=== PATIENT | female | born 1945 | race African-American/Black ===

== ENCOUNTER 2016-11-23 03:22 | Emergency (ER) | payer MEDICARE ==
--- NOTE | 2016-11-23 05:18 | RADIOLOGY REPORT (SQ) ---
EXAM DESCRIPTION: CHEST SINGLE VIEW COMPLETED DATE/TIME: 11/23/2016 5:06 am REASON FOR STUDY: weakness COMPARISON: 01/19/2015. 06/23/2014. EXAM PARAMETERS: NUMBER OF VIEWS: One view. TECHNIQUE: Single frontal radiographic view of the chest acquired. RADIATION DOSE: NA LIMITATIONS: None. FINDINGS: LUNGS AND PLEURA: No opacities, masses or pneumothorax. No pleural effusion. MEDIASTINUM AND HILAR STRUCTURES: No masses. Contour normal. HEART AND VASCULAR STRUCTURES: Heart normal in size. Normal vasculature. BONES: No acute findings. HARDWARE: None in the chest. OTHER: No other significant finding. IMPRESSION: NO ACUTE RADIOGRAPHIC FINDING IN THE CHEST. TECHNICAL DOCUMENTATION: JOB ID: [id number]
[2016-11-23 05:19] LABS: ABSOLUTE LYMPHOCYTES (AUTO) 1.2 10^3/uL (0.5-4.7); ABSOLUTE MONOCYTES (AUTO) 0.3 10^3/uL (0.1-1.4); ABSOLUTE NEUT (AUTO) 1.9 10^3/uL (1.7-8.2); BASOPHILS % (AUTO) 0.4 % (0-2); EOSINOPHILS % (AUTO) 0.2 % (0-6); HEMATOCRIT 42.5 % (36.0-47.0); HEMOGLOBIN 13.9 g/dL (12.0-15.5); HGB HCT DIFFERENCE -0.8; LYMPHOCYTES % (AUTO) 35.6 % (13-45); MEAN CORPUSCULAR HEMOGLOBIN 27.8 pg (27.0-33.4); MEAN CORPUSCULAR HGB CONC 32.8 g/dL (32.0-36.0); MEAN CORPUSCULAR VOLUME 85 fl (80-97); MONOCYTES % (AUTO) 7.7 % (3-13); RED BLOOD COUNT 5.01 10^6/uL (3.72-5.28); RED CELL DISTRIBUTION WIDTH 14.7 % (11.5-14.0); SEGMENTED NEUTROPHILS % (AUTO) 56.1 % (42-78); WHITE BLOOD COUNT 3.3 10^3/uL (4.0-10.5)
[2016-11-23 05:39] LABS: ALANINE AMINOTRANSFERASE 23 U/L (9-52); ALBUMIN 4.1 g/dL (3.5-5.0); ALKALINE PHOSPHATASE 66 U/L (38-126); ANION GAP 10 (5-19); ASPARTATE AMINO TRANSFERASE 24 U/L (14-36); BILIRUBIN,DIRECT 0.3 mg/dL (0.0-0.4); BILIRUBIN,TOTAL 0.9 mg/dL (0.2-1.3); BLOOD UREA NITROGEN 13 mg/dL (7-20); CALCIUM 10.3 mg/dL (8.4-10.2); CARBON DIOXIDE 26 mmol/L (22-30); CHLORIDE 106 mmol/L (98-107); CREATINE KINASE 42 U/L (30-135); CREATININE RESULT 0.76 mg/dL (0.52-1.25); GLUCOSE 118 mg/dL (75-110); POTASSIUM 3.9 mmol/L (3.6-5.0); SODIUM 142.2 mmol/L (137-145); TOTAL PROTEIN 7.3 g/dL (6.3-8.2)
[2016-11-23 05:50] LABS: CREATINE KINASE MB 0.38 ng/mL (<4.55)
[2016-11-23 05:55] LABS: TROPONIN I 0.048 ng/mL
--- NOTE | 2016-11-23 06:41 | ER Document Report ---
ED General <LIBERTY CONLEY - Last Filed: 11/23/16 06:49> - General Mode of Arrival: Ambulatory Information source: Patient TRAVEL OUTSIDE OF THE [place] IN LAST 30 DAYS: No - HPI Onset: Other - Refer to HPI notes Onset/Duration: Gradual Similar symptoms previously: Yes Recently seen / treated by doctor: No <JACKY BLISS - Last Filed: 11/23/16 07:20> - General Chief Complaint: General Weakness Stated Complaint: GENERAL WEAKNESS Time Seen by Provider: 11/23/16 06:27 Notes: Patient is a 71 year old female presenting to the emergency department for not feeling well. Patient has been "feeling like nothing" and "feeling like giving up on life" for the past several months. Patient's states that she has felt like this for some time and has not seen a physician about it yet. Patient does have an appointment with Dr. Zavala tomorrow. Patient also complains of some burning to the left side of her body which she describes a fire. Patient states she woke up with this pain. Patient's spouse states the patient has had several close loved ones pass away over the last 2-3 years. Patient has not had any changes to her medications. Patient has a history of diabetes mellitus and hypertension. Patient is not currently taking any medicine for her hypertension but was previously taking lisinopril until she had an allergic reaction to lisinopril. (JACKY BLISS) - Related Data Allergies/Adverse Reactions: lisinopril Allergy (Verified 04/20/16 15:59) angioedema, tongue swollen Past Medical History - General Information source: Patient, Relative - spouse - Social History Smoking Status: Never Smoker Cigarette use (# per day): No Chew tobacco use (# tins/day): No Frequency of alcohol use: None Drug Abuse: None Family History: None Patient has suicidal ideation: No Patient has homicidal ideation: No - Past Medical History Cardiac Medical History: Reports: Hx Hypertension Endocrine Medical History: Reports: Hx Diabetes Mellitus Type 2 Past Surgical History: Reports: Hx Appendectomy, Hx Hysterectomy, Hx Neurologic Surgery - 2000 coiling, Hx Tubal Ligation - Immunizations Hx Diphtheria, Pertussis, Tetanus Vaccination: Yes <JACKY BLISS - Last Filed: 11/23/16 07:20> Review of Systems - Review of Systems Constitutional: See HPI, Malaise EENT: No symptoms reported Cardiovascular: See HPI Respiratory: No symptoms reported Gastrointestinal: No symptoms reported Genitourinary: No symptoms reported Female Genitourinary: No symptoms reported Musculoskeletal: No symptoms reported Skin: No symptoms reported Hematologic/Lymphatic: No symptoms reported Neurological/Psychological: See HPI, Depression -: Yes All other systems reviewed and negative <RITCHIEFLORENTIN GRANTINE - Last Filed: 11/23/16 07:20> Physical Exam - Vital signs Interpretation: Hypertensive - General General appearance: Appears well, Alert In distress: Mild - HEENT Head: Normocephalic, Atraumatic Eyes: Normal Pupils: PERRL Mucous membranes: Moist - Respiratory Respiratory status: No respiratory distress Chest status: Nontender Breath sounds: Normal Chest palpation: Normal - Cardiovascular Rhythm: Regular Heart sounds: Normal auscultation Murmur: No - Abdominal Inspection: Obese Distension: No distension Bowel sounds: Normal Tenderness: Nontender Organomegaly: No organomegaly - Back Back: Normal, Nontender - Extremities General upper extremity: Normal inspection, Normal ROM, Normal strength General lower extremity: Normal inspection, Normal ROM, Normal strength. No: Edema - Neurological Neuro grossly intact: Yes Cognition: Normal Orientation: AAOx4 [place] Coma Scale Eye Opening: Spontaneous [place] Coma Scale Verbal: Oriented [place] Coma Scale Motor: Obeys Commands [place] Coma Scale Total: 15 Speech: Normal - Psychological Associated symptoms: Flat affect, Other - no suicidal ideation - Skin Skin Temperature: Warm Skin Moisture: Dry <FLORENTIN BLISSINE - Last Filed: 11/23/16 07:20> - Vital signs Vitals: Pulse Ox 98 11/23/16 03:39 Course - Laboratory Result Diagrams: 11/23/16 04:58 11/23/16 04:58 - Diagnostic Test Radiology reviewed: Image reviewed, Reports reviewed - Chest x-ray shows no acute process - EKG Interpretation by Ut EKG shows normal: Sinus rhythm, [place], Intervals, ST-T Waves. abnormal: QRS Complexes - Borderline R-wave progression in the anterior leads Rate: Normal - 51 Rhythm: NSR <LIBERTY CONLEY - Last Filed: 11/23/16 06:49> - Laboratory Result Diagrams: 11/23/16 04:58 11/23/16 04:58 <JACKY BLISS - Last Filed: 11/23/16 07:20> - Re-evaluation Re-evalutation: 11/23/16 06:50 Patient's initial troponin is in the indeterminate range. Review of records shows she had several troponins in the same range on an admission in 2011. ( LIBERTY CONLEY) - Vital Signs Vital signs: Temp Pulse Resp BP Pulse Ox 98.3 F 49 L 17 175/76 H 98 11/23/16 06:31 11/23/16 04:26 11/23/16 06:31 11/23/16 06:31 11/23/16 06:31 - Laboratory Laboratory results interpreted by me: 11/23/16 11/23/16 04:58 04:58 WBC 3.3 L RDW 14.7 H Plt Count 148 L Glucose 118 H Calcium 10.3 H Discharge <LIBERTY CONLEY - Last Filed: 11/23/16 06:49> <JACKY BLISS - Last Filed: 11/23/16 07:20> - Discharge Clinical Impression: Depression Qualifiers: Depression Type: unspecified Qualified Code(s): F32.9 - Major depressive disorder, single episode, unspecified High blood pressure Qualifiers: Hypertension type: essential hypertension Qualified Code(s): I10 - Essential ( primary) hypertension Disposition: HOME, SELF-CARE Additional Instructions: Depression: Your evaluation reveals that you have depression. While symptoms may be vague, they often include disturbance of sleep, fatigue, loss of appetite, and general loss of interest in life. While depression may be a side effect of drugs, or a reaction to a major change in your life, many cases have no known cause. If depression is acute, and related to a major loss in your life, you can expect it to clear completely with time. If you have been depressed a long time , are prone to repeated bouts of depression or low mood, or have been thinking of suicide, get help. Depression can be treated with anti-depressant medication and counselling. Long-term depression will often take a few weeks to clear, even with appropriate medication. Follow-up care is important. Contact your physician, the hospital emergency center, crisis line, or your counsellor if you are losing control or having self-destructive thoughts. Your blood pressure has been running on the high side on your previous visits including today. Be sure to tell Dr. Zavala about your blood pressure being too high when you see him tomorrow to discuss your depression symptoms. RETURN TO THE EMERGENCY ROOM IF ANY NEW OR WORSENING SYMPTOMS. Referrals: PRERNA ZAVALA MD [Primary Care Provider] - Follow up tomorrow [place] Attestation: 11/23/16 06:49 I personally performed the services described in the documentation, reviewed and edited the documentation which was dictated to the scribe in my presence, and it accurately records my words and actions. (LIBERTY CONLEY) Scribe Documentation - Scribe Written by Sunni:: Sunni Chapman 11/23/16 7:15 acting as scribe for :: Giovany <JACKY BLISS - Last Filed: 11/23/16 07:20>
[2016-11-23 06:56] VITALS: BP 175/76
[2016-11-23 08:26] LABS: APPEARANCE,URINE CLEAR; BILIRUBIN,URINE NEGATIVE (NEGATIVE); GLUCOSE, URINE NEGATIVE (NEGATIVE); KETONES,URINE NEGATIVE (NEGATIVE); LEUKOCYTE ESTERASE,URINE NEGATIVE (NEGATIVE); NITRITE,URINE NEGATIVE (NEGATIVE); PROTEIN,URINE NEGATIVE (NEGATIVE); URINE SPECIFIC GRAVITY 1.005; UROBILINOGEN,URINE NEGATIVE mg/dL (<2.0)
--- NOTE | 2016-11-23 10:38 | EKG REPORT ---
SEVERITY:- BORDERLINE ECG - SINUS RHYTHM BORDERLINE R WAVE PROGRESSION, ANTERIOR LEADS : Confirmed by: Sarah Heart 23-Nov-2016 10:37:27
== END 2016-11-23 06:55 | disposition home or self-care (01) ==
LOC: ER 03:22
DX: F32.9 Major depressive disorder, single episode, unspecified (principal); R20.8 Other disturbances of skin sensation; I10 Essential (primary) hypertension; E11.9 Type 2 diabetes mellitus without complications; Z88.8 Allergy status to other drugs, medicaments and biological substances
CPT/HCPCS: 36415; 71010; 80053; 81001; 82550; 82553; 84484; 85025; 93005; 93010; 99284

== ENCOUNTER 2016-12-07 11:37 | Inpatient (IN) | payer MEDICARE ==
[2016-12-07] MEDS ORDERED: ETOMIDATE INJ/PF 20 MG/10 ML SDV IV ONE (11:57)
[2016-12-07] MEDS ORDERED: LABETALOL HCL INJ 20 MG/4 ML DISP.SYRIN IV ONE ×2 (12:03→12:04)
--- NOTE | 2016-12-07 12:16 | ER Document Report ---
ED Allergic Reaction - General Mode of Arrival: Ambulatory Information source: Patient, Relative - , [facility], LAT[facility] Records TRAVEL OUTSIDE OF THE [place] IN LAST 30 DAYS: No - HPI Onset: Just prior to arrival Onset/Duration: Sudden, Worse Medication Exposure: Other - Amlodipine Swelling: Lip(s), Tongue, Throat Trouble swallowing / speaking: Moderate <HASEEB CHAPMAN - Last Filed: 12/07/16 12:18> <LIBERTY CONLEY - Last Filed: 12/07/16 12:46> - General Chief Complaint: Swelling of Tongue Stated Complaint: POSSIBLE ALLERGIC REACTION/DIFFICULTY BREATHING Time Seen by Provider: 12/07/16 11:47 Notes: Patient is a 71-year-old female presenting to the emergency department accompanied by her concerned of tongue and mouth swelling onset approximately 30 minutes prior to arrival. Patient's states that it took him approximately [address] here to the emergency department. Patient cannot speak, but has been spitting her secretions. Patient's states that the patient has experienced tongue swelling before secondary to an allergic reaction to lisinopril. Patient took amlodipine this morning for her blood pressure. (HASEEB CHAPMAN) - Related Data Allergies/Adverse Reactions: lisinopril Allergy (Verified 12/07/16 12:16) angioedema, tongue swollen Past Medical History - General Information source: Patient, [facility], LAT[facility] Records - Social History Smoking Status: Never Smoker Family History: Reviewed & Not Pertinent - Past Medical History Cardiac Medical History: Reports: Hx Hypertension Endocrine Medical History: Reports: Hx Diabetes Mellitus Type 2 Past Surgical History: Reports: Hx Appendectomy, Hx Hysterectomy, Hx Neurologic Surgery - 2000 coiling, Hx Tubal Ligation - Immunizations Hx Diphtheria, Pertussis, Tetanus Vaccination: Yes <HASEEB CHAPMAN - Last Filed: 12/07/16 12:18> Review of Systems - Review of Systems Constitutional: No symptoms reported EENT: See HPI, Difficulty swallowing, Throat swelling, Mouth swelling Cardiovascular: No symptoms reported Respiratory: No symptoms reported Gastrointestinal: No symptoms reported Genitourinary: No symptoms reported Female Genitourinary: No symptoms reported Musculoskeletal: No symptoms reported Skin: No symptoms reported Hematologic/Lymphatic: No symptoms reported Neurological/Psychological: No symptoms reported -: Yes All other systems reviewed and negative <HASEEB CHAPMAN - Last Filed: 12/07/16 12:18> Physical Exam - General General appearance: Alert - Unable to speak - HEENT Head: Normocephalic, Atraumatic Eyes: Normal Pupils: PERRL Mouth/Lips: Angioedema - Lower lip grossly edematous. Tongue edematous and glistening., Other - Difficulty controlling secretions, spitting Pharynx: Uvular edema, Other - Unable to visualize posterior pharynx - Respiratory Respiratory status: No respiratory distress Chest status: Nontender Breath sounds: Normal Chest palpation: Normal - Cardiovascular Rhythm: Regular Heart sounds: Normal auscultation Murmur: No - Abdominal Inspection: Obese - Soft Tenderness: Nontender - Back Back: Normal, Nontender - Extremities General upper extremity: Normal inspection, Nontender General lower extremity: Normal inspection, Nontender - Neurological Neuro grossly intact: Yes Cognition: Normal Orientation: AAOx4 [place] Coma Scale Eye Opening: Spontaneous [place] Coma Scale Verbal: Oriented [place] Coma Scale Motor: Obeys Commands [place] Coma Scale Total: 15 Speech: Other - Unable to speak due to swelling - Psychological Associated symptoms: Normal affect, Normal mood - Skin Skin Temperature: Warm Skin Moisture: Dry Skin Color: Normal <HASEEB CHAPMAN - Last Filed: 12/07/16 12:18> Course - Consults Dr. Kearns Time consulted: 12:00 Consulted provider: will come to ER Nurse leonardthecist \ Time consulted: 12:00 Consulted provider: other - Coordinating to go to OR to preserve airway <HASEEB CHAPMAN - Last Filed: 12/07/16 12:18> - Consults Dr. Zavala Time consulted: 12:25 Consulted provider: will see as inpatient <LIBERTY CONLEY - Last Filed: 12/07/16 12:46> - Vital Signs Vital signs: Temp Pulse Resp BP Pulse Ox 75 18 190/86 H 100 12/07/16 12:05 12/07/16 12:31 12/07/16 12:31 12/07/16 12:31 Critical Care Note - Critical Care Note Total time excluding time spent on procedures (mins): 35 <LIBERTY CONLEY - Last Filed: 12/07/16 12:46> Discharge <HASEEB CHAPMAN - Last Filed: 12/07/16 12:18> - Discharge Unit Admitted: OR <LIBERTY CONLEY - Last Filed: 12/07/16 12:46> - Discharge Clinical Impression: Airway compromise, Poorly-controlled hypertension Angioedema Qualifiers: Encounter type: initial encounter Qualified Code(s): T78.3XXA - Angioneurotic edema, initial encounter Condition: Good Disposition: ADMITTED INPATIENT Scribe Attestation: 12/07/16 12:46 I personally performed the services described in the documentation, reviewed and edited the documentation which was dictated to the scribe in my presence, and it accurately records my words and actions. (LIBERTY CONLEY) Scribe Documentation - Scribe Written by Sunni:: Sunni Contreras, 12/07/2016 1211 acting as scribe for :: Giovany <HASEEB CHAPMAN - Last Filed: 12/07/16 12:18>
[2016-12-07] MEDS ORDERED: LIDOCAINE 1%/EPINEPHRINE INJ 20 ML VIAL ONE (12:26)
[2016-12-07] MEDS ORDERED: LIDOCAINE 4% INJ/PF (40 MG/ML) 5 ML AMPUL ONE (12:51)
[2016-12-07 12:59] LABS: ABSOLUTE LYMPHOCYTES (AUTO) 1.8 10^3/uL (0.5-4.7); ABSOLUTE MONOCYTES (AUTO) 0.4 10^3/uL (0.1-1.4); ABSOLUTE NEUT (AUTO) 3.3 10^3/uL (1.7-8.2); BASOPHILS % (AUTO) 0.4 % (0-2); EOSINOPHILS % (AUTO) 0.1 % (0-6); HEMATOCRIT 47.4 % (36.0-47.0); HEMOGLOBIN 15.1 g/dL (12.0-15.5); HGB HCT DIFFERENCE -2.1; LYMPHOCYTES % (AUTO) 32.6 % (13-45); MEAN CORPUSCULAR HEMOGLOBIN 27.5 pg (27.0-33.4); MEAN CORPUSCULAR HGB CONC 31.8 g/dL (32.0-36.0); MEAN CORPUSCULAR VOLUME 87 fl (80-97); MONOCYTES % (AUTO) 7.7 % (3-13); RED BLOOD COUNT 5.47 10^6/uL (3.72-5.28); RED CELL DISTRIBUTION WIDTH 15.1 % (11.5-14.0); SEGMENTED NEUTROPHILS % (AUTO) 59.2 % (42-78); WHITE BLOOD COUNT 5.6 10^3/uL (4.0-10.5)
[2016-12-07 13:06] LABS: ALANINE AMINOTRANSFERASE 20 U/L (9-52); ALBUMIN 4.4 g/dL (3.5-5.0); ALKALINE PHOSPHATASE 76 U/L (38-126); ANION GAP 16 (5-19); ASPARTATE AMINO TRANSFERASE 47 U/L (14-36); BILIRUBIN,DIRECT 0.4 mg/dL (0.0-0.4); BILIRUBIN,TOTAL 0.9 mg/dL (0.2-1.3); BLOOD UREA NITROGEN 18 mg/dL (7-20); CALCIUM 10.6 mg/dL (8.4-10.2); CARBON DIOXIDE 27 mmol/L (22-30); CHLORIDE 104 mmol/L (98-107); CREATINE KINASE 43 U/L (30-135); CREATININE RESULT 0.91 mg/dL (0.52-1.25); GLUCOSE 194 mg/dL (75-110); POTASSIUM 4.2 mmol/L (3.6-5.0); SODIUM 146.6 mmol/L (137-145); TOTAL PROTEIN 8.4 g/dL (6.3-8.2)
[2016-12-07 13:18] LABS: CREATINE KINASE MB 0.38 ng/mL (<4.55)
[2016-12-07 13:22] LABS: TROPONIN I 0.051 ng/mL
[2016-12-07] MEDS ORDERED: PROPOFOL 100 ML IV ONE ×2 (13:44→16:24)
[2016-12-07] MEDS ORDERED: PROPOFOL INJ 200 MG/20 ML VIAL IV ONE (13:59)
--- NOTE | 2016-12-07 13:59 | OPERATIVE REPORT E ---
Operative Report NAME: YEMI CARLSON : 1945 AGE: 71Y DATE OF SURGERY: 12/07/2016 ROOM: ICU 603 PREOPERATIVE DIAGNOSIS: Angioedema. POSTOPERATIVE DIAGNOSIS: Angioedema. OPERATION: 1. Intubation. 2. Standby for a possible tracheostomy. SURGEON: FAUSTINA LEE M.D. ENGINEER INTERNSHIP: None. ANESTHESIA: General, Dr. Corinne MD, and Mignon Cardenas CRNA. PREOPERATIVE NOTE: This is a 71-year-old lady who started to develop swelling of the lip around 1100 hours this morning. She has had episodes of angioedema before, which was thought to be associated with lisinopril, which has therefore been discontinued. The swelling appeared to advance very rapidly, and she was brought by private car to the emergency department by her . Transport took approximately 30 minutes. On arrival in the emergency department, she was assessed by Dr. Ranjan Zheng. Anesthesia and Otolaryngology were called because of the potential need for a tracheostomy, as the edema appeared to be worsening with every passing minute. When seen and assessed in the emergency department, (~1215hr), it was evident that there was massive edema of the lower lip (rather more than the upper one), but there was involvement of the palate, floor of mouth, and also the uvula, and the patient was having to spit up her secretions. Emergent preparations were therefore made to clear an operating room in order to intubate the patient. A tracheostomy set was brought into the room and this was opened, and ascalpel handle were loaded with a #10 blade. The patient was briefly examined, and that examination is available in hand-written form. DESCRIPTION OF PROCEDURE: On arrival in the operating room, she was transferred onto the operating room table and placed supine. The pharynx was sprayed multiple times with 10% benzocaine. An airway was then placed, and she was sprayed through that as well. After a certain time interval, 4% topical lidocaine solution was introduced, using a syringe and an Angiocath, down the pharyngeal gutters. At this point, the patient regurgitated gastric fluid, necessitating urgent and aggressive suctioning. The Glidescope was then utilized, and the larynx was visualized. The epiglottis was noted to be omega-shaped and at least twice normal size. There was intense edema over the arytenoids, such that the true vocal cords could not be visualized. There was edema throughout the posterior pharyngeal wall. There were much secretions, which were difficult to remove because the patient was swallowing. A #7 endotracheal tube was chosen, and a stylet was inserted. This was then passed over the Glidescope, and fortunately it was possible to enter the airway with this. An end-tidal CO2 was noted. Suctioning was done. This endotracheal tube was then secured using tincture of benzoin and tape. Arrangements were then made to transport the patient to the intensive care unit. This was then subsequently done, and a chest x-ray is ordered there. This was reviewed. There was gastric distension shown, but no evidence for aspiration, which had been a concern. The operating surgeon was then able to talk with the patient's and family to assure them that the patient was now out of danger. There were no complications and no untoward events. Estimated blood loss is 0. DICTATING PHYSICIAN: FAUSTINA LEE M.D. [id number] PHY#: [id number] ID: [id number] JOB#: [id number] ACCT: [id number] cc:Liam IBARRA M.D. > MTDD
--- NOTE | 2016-12-07 14:09 | RADIOLOGY REPORT (SQ) ---
EXAM DESCRIPTION: CHEST SINGLE VIEW COMPLETED DATE/TIME: 12/07/2016 1:56 pm REASON FOR STUDY: ETT placement COMPARISON: 11/23/2016 EXAM PARAMETERS: NUMBER OF VIEWS: One view. TECHNIQUE: Single frontal radiographic view of the chest acquired. RADIATION DOSE: NA LIMITATIONS: None. FINDINGS: LUNGS AND PLEURA: No opacities, masses or pneumothorax. No pleural effusion. MEDIASTINUM AND HILAR STRUCTURES: No masses. Contour normal. HEART AND VASCULAR STRUCTURES: Heart normal in size. Normal vasculature. BONES: No acute findings. HARDWARE: Endotracheal tube is noted approximately 2.8 cm from the yaw. EKG leads overlie the stacey st. OTHER: There is gaseous distention of the stomach. IMPRESSION: Endotracheal tube noted approximate 2.8 cm from the yaw. No acute cardiopulmonary di sease identified. There is gaseous distention of the stomach. TECHNICAL DOCUMENTATION: JOB ID: [id number]
[2016-12-07 14:24] LABS: ARTERIAL BLOOD BASE EXCESS 0.5 mmol/L; ARTERIAL BLOOD O2 SATURATION 97.9 % (94-98)
[2016-12-07] MEDS ORDERED: GLYCOPYRROLATE INJ 0.4 MG/2 ML VIAL ONE (14:24)
--- NOTE | 2016-12-07 15:02 | RADIOLOGY REPORT (SQ) ---
EXAM DESCRIPTION: KUB/ABDOMEN (SINGLE VIEW) COMPLETED DATE/TIME: 12/07/2016 2:41 pm REASON FOR STUDY: ENG Tube Placement COMPARISON: None. NUMBER OF VIEWS: One view. TECHNIQUE: Supine radiographic image of the abdomen acquired. LIMITATIONS: None. FINDINGS: BOWEL GAS PATTERN: There are gas-filled loops of bowel. The stomach is distended with gas . CALCIFICATIONS: No suspicious calcifications. SOFT TISSUES: No gross mass or suggestion of organomegaly. HARDWARE: An NG tube extends to the stomach. The tip of the tube is in the gastric fundus. BONES: No acute fracture. No worrisome bone lesions. OTHER: No other significant finding. IMPRESSION: NG tube placement as described. TECHNICAL DOCUMENTATION: JOB ID: [id number] [employer]- All Rights Reserved
[2016-12-07 15:28] LABS: APPEARANCE,URINE CLEAR; BILIRUBIN,URINE NEGATIVE (NEGATIVE); GLUCOSE, URINE NEGATIVE (NEGATIVE); KETONES,URINE NEGATIVE (NEGATIVE); LEUKOCYTE ESTERASE,URINE NEGATIVE (NEGATIVE); NITRITE,URINE NEGATIVE (NEGATIVE); PROTEIN,URINE 100 mg/dL (NEGATIVE); URINE SPECIFIC GRAVITY 1.017; UROBILINOGEN,URINE NEGATIVE mg/dL (<2.0)
[2016-12-07] MEDS ORDERED: FAMOTIDINE INJ/PF 20 MG/2 ML SDV IV ONE (15:30)
[2016-12-07] MEDS ORDERED: METHYLPREDNISOLONE INJ 40 MG/1 ML SDV IV ONE (15:30)
[2016-12-07] MEDS ORDERED: ENOXAPARIN SODIUM INJ 40 MG/0.4 ML DISP.SYRIN SUBCUT ONE (15:30)
[2016-12-07] MEDS ORDERED: DEXTROSE 50%-WATER SYRINGE 12.5 GM/25 ML DOSE IV PRN (15:44)
[2016-12-07] MEDS ORDERED: DEXTROSE 40% GEL 15 GM TUBE X 2 PO PRN (15:44)
[2016-12-07] MEDS ORDERED: DEXTROSE 40% GEL 15 GM TUBE PO PRN (15:44)
[2016-12-07] MEDS ORDERED: DEXTROSE 50%-WATER SYRINGE 25 GM/50 ML DOSE IV PRN (15:44)
[2016-12-07] MEDS ORDERED: GLUCAGON,HUMAN RECOMB 1 MG INJ IM PRN (15:44)
[2016-12-07] MEDS: LABETALOL HCL INJ 20 MG/4 ML DISP.SYRIN IV PRN (16:15)
[2016-12-07 16:22] LABS: PARTIAL THROMBOPLASTIN TIME 30.7 SEC (23.5-35.8)
[2016-12-07] MEDS ORDERED: NORMAL SALINE 1000 ML 1,000 ML IV PRN (16:38)
[2016-12-07] MEDS ORDERED: ACETAMINOPHEN 650 MG SUPP.RECT PR PRN (16:38)
[2016-12-07] MEDS ORDERED: DIPHENHYDRAMINE HCL 50 MG/ML VIAL ONE (17:53)
[2016-12-07] MEDS: FAMOTIDINE INJ/PF 20 MG/2 ML SDV IV SCH (17:54)
--- NOTE | 2016-12-07 17:55 | PDOC H&P ---
History of Present Illness Admission Date/PCP: 12/07/16 15:37 PRERNA LOERA MD Patient complains of: Mouth and the tongue swelling History of Present Illness: YEMI CARLSON is a 71 year old female This 71-year-old female came to the emergency department with a complaint of her tongue and the mouth swelling with her . According to the 30 minutes prior to arrival patient started developing this tongue and the mild swelling and patient had this before due to the lisinopril and that is why they came to the emergency department today. Patient's currently not taking any lisinopril. Patients took the Norvasc 5 mg in the morning. In the emergency department patient had a significant swelling in the mouth and the tongue and patient was unable to speak and the patient have a splitting this secretions and at that time he had physicians consult the ENT and patient underwent operating room and was intubated due to the airway productions and put in the ICU for further evaluation and treatment Patient's currently intubated and under sedation's Patients recently have a nothing new medications but patients recently a more depressed because of her brother and according to the patient is not taking lisinopril since the last incidence several years back Patients did not eat anything unusual and not taking any other usual medications Past Medical History Cardiac Medical History: Reports: Hypertension Denies: Coronary Artery Disease, Myocardial Infarction Pulmonary Medical History: Denies: Asthma, Bronchitis, Chronic Obstructive Pulmonary Disease (COPD), Pneumonia Neurological Medical History: Denies: Seizures Endocrine Medical History: Reports: Diabetes Mellitus Type 2 Musculoskeltal Medical History: Denies: Arthritis Psychiatric Medical History: Denies: Depression Hematology: Denies: Anemia Past Surgical History Past Surgical History: Reports: Appendectomy, Hysterectomy, Tubal Ligation Denies: Pacemaker Social History Smoking Status: Never Smoker Frequency of Alcohol Use: None Hx Recreational Drug Use: No Drugs: None Hx Prescription Drug Abuse: No - Advance Directive Resuscitation Status: Full Code Family History Family History: Reviewed & Not Pertinent Parental Family History Reviewed: Yes Children Family History Reviewed: Yes Sibling(s) Family History Reviewed.: Yes Medication/Allergy Home Medications: Amlodipine Besylate [Amlodipine Besylate] 10 mg PO DAILY 12/07/16 Metoprolol Succinate 12/07/16 Pioglitazone HCl [Actos 15 mg Tablet] 15 mg PO DAILY 12/07/16 Allergies/Adverse Reactions: lisinopril Allergy (Verified 12/07/16 12:16) angioedema, tongue swollen Physical Exam Vital Signs: Temp Pulse Resp BP Pulse Ox 97.9 F 59 L 24 H 181/90 H 100 12/07/16 16:04 12/07/16 16:04 12/07/16 16:04 12/07/16 16:04 12/07/16 16:15 Intake & Output 12/06/16 12/07/16 12/08/16 06:59 06:59 06:59 Output Total 110 Balance -110 Physical Exam: Currently intubated General appearance: PRESENT: no acute distress Eye exam: PRESENT: PERRLA Mouth exam: PRESENT: dry mucosa, neck supple Additional comments: Swelling in the lower lip and also on the toung Throat exam: PRESENT: other Additional comments: Currently intubated Neck exam: ABSENT: carotid bruit, full ROM, JVD, lymphadenopathy, meningismus, tenderness, thyromegaly, tracheal deviation, tracheostomy, other Respiratory exam: PRESENT: clear to auscultation shereen Cardiovascular exam: PRESENT: +S1, +S2 GI/Abdominal exam: PRESENT: normal bowel sounds, soft. ABSENT: tenderness Extremities exam: ABSENT: pedal edema Neurological exam: PRESENT: alert, awake Skin exam: PRESENT: dry Results Impressions: Chest X-Ray 12/07/16 13:35 IMPRESSION: Endotracheal tube noted approximate 2.8 cm from the yaw. No acute cardiopulmonary disease identified. There is gaseous distention of the stomach. KUB X-Ray 12/07/16 14:17 IMPRESSION: NG tube placement as described. Assessment & Plan - Diagnosis (1) Airway compromise Is this a current diagnosis for this admission?: YesPlan: Status post intubations currently patients follow with the pulmonary (2) Angioedema Qualifiers: Encounter type: initial encounter Qualified Code(s): T78.3XXA - Angioneurotic edema, initial encounter Is this a current diagnosis for this admission?: YesPlan: Unclear etiology patient have a history of angioedema due to the lisinopril but not currently taking will check ci inbiitor and c4 level Will give a patient's IV steroid and IV Pepcid and a bendryal (3) Poorly-controlled hypertension Is this a current diagnosis for this admission?: YesPlan: Patient is very noncompliance several times discussed with patient and the in the office will put the patient's IV labetalol as needed (4) Diabetes mellitus type 2 in obese Is this a current diagnosis for this admission?: YesPlan: Patient's last A1c was 7.1 will put the patient on a sliding scale (5) Hyperlipemia Qualifiers: Hyperlipidemia type: unspecified Qualified Code(s): E78.5 - Hyperlipidemia, unspecified Is this a current diagnosis for this admission?: YesPlan: Continues current medications (6) Major depression Qualifiers: Major depression recurrence: recurrent Is this a current diagnosis for this admission?: YesPlan: Follow outpatients psych - Time Time Spent: 30 to 50 Minutes Critical Time spent with patient: 25-34 minutes Medications reviewed and adjusted accordingly: Yes Anticipated discharge: Home Within: Other - Inpatient Certification Medical Necessity: Need Close Monitoring Due to Risk of Patient Decompensation, Need For IV Fluids 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
[2016-12-07] MEDS: PROPOFOL 100 ML IV PRN ×3 (17:59→22:14)
[2016-12-07] MEDS: NORMAL SALINE 1000 ML 1,000 ML IV PRN ×2 (18:00→22:15)
[2016-12-07 19:15] LABS: CREATINE KINASE MB 0.48 ng/mL (<4.55); TROPONIN I 0.05 ng/mL
[2016-12-07] MEDS: METHYLPREDNISOLONE INJ 40 MG/1 ML SDV IV SCH (21:45)
[2016-12-08 00:53] LABS: CREATINE KINASE MB 0.43 ng/mL (<4.55); TROPONIN I 0.045 ng/mL
[2016-12-08 06:00] LABS: ARTERIAL BLOOD BASE EXCESS -1.1 mmol/L; ARTERIAL BLOOD O2 SATURATION 98.3 % (94-98)
[2016-12-08] MEDS ORDERED: METHYLPREDNISOLONE INJ 125 MG/2 ML SDV ONE (06:01)
[2016-12-08] MEDS: DIPHENHYDRAMINE HCL 50 MG/ML VIAL IV SCH ×2 (06:02→17:14)
[2016-12-08] MEDS: METHYLPREDNISOLONE INJ 40 MG/1 ML SDV IV SCH ×3 (06:10→21:17)
[2016-12-08] MEDS: PROPOFOL 100 ML IV PRN ×4 (06:16→21:16)
[2016-12-08 06:46] LABS: ABSOLUTE LYMPHOCYTES (AUTO) 0.7 10^3/uL (0.5-4.7); ABSOLUTE MONOCYTES (AUTO) 0.2 10^3/uL (0.1-1.4); ABSOLUTE NEUT (AUTO) 7.6 10^3/uL (1.7-8.2); BASOPHILS % (AUTO) 0.2 % (0-2); HEMATOCRIT 43.3 % (36.0-47.0); HGB HCT DIFFERENCE -1.3; LYMPHOCYTES % (AUTO) 8.4 % (13-45); MEAN CORPUSCULAR HEMOGLOBIN 27.7 pg (27.0-33.4); MEAN CORPUSCULAR HGB CONC 32.4 g/dL (32.0-36.0); MEAN CORPUSCULAR VOLUME 85 fl (80-97); MONOCYTES % (AUTO) 2.7 % (3-13); RED BLOOD COUNT 5.07 10^6/uL (3.72-5.28); RED CELL DISTRIBUTION WIDTH 14.7 % (11.5-14.0); SEGMENTED NEUTROPHILS % (AUTO) 88.7 % (42-78); WHITE BLOOD COUNT 8.5 10^3/uL (4.0-10.5)
--- NOTE | 2016-12-08 07:03 | RADIOLOGY REPORT (SQ) ---
12/07/2016. EXAM DESCRIPTION: CHEST SINGLE VIEW COMPLETED DATE/TIME: 12/08/2016 6:14 am REASON FOR STUDY: Angioedema requiring intubation COMPARISON: 12/07/2016. EXAM PARAMETERS: NUMBER OF VIEWS: One view. TECHNIQUE: Single frontal radiographic view of the chest acquired. RADIATION DOSE: NA LIMITATIONS: None. FINDINGS: LUNGS AND PLEURA: No opacities, masses or pneumothorax. No pleural effusion. MEDIASTINUM AND HILAR STRUCTURES: No masses. Contour normal. HEART AND VASCULAR STRUCTURES: Heart normal in size. Normal vasculature. BONES: No acute findings. HARDWARE: Adequate appearing endotracheal tube and nasogastric tube appear OTHER: No other significant finding. IMPRESSION: No acute cardiopulmonary findings. TECHNICAL DOCUMENTATION: JOB ID: [id number]
[2016-12-08 07:10] LABS: ALANINE AMINOTRANSFERASE 19 U/L (9-52); ALKALINE PHOSPHATASE 72 U/L (38-126); ANION GAP 13 (5-19); ASPARTATE AMINO TRANSFERASE 21 U/L (14-36); BILIRUBIN,DIRECT 0.3 mg/dL (0.0-0.4); BILIRUBIN,TOTAL 0.7 mg/dL (0.2-1.3); BLOOD UREA NITROGEN 15 mg/dL (7-20); CALCIUM 10.2 mg/dL (8.4-10.2); CARBON DIOXIDE 23 mmol/L (22-30); CHLORIDE 108 mmol/L (98-107); CREATINE KINASE 34 U/L (30-135); CREATININE RESULT 0.89 mg/dL (0.52-1.25); GLUCOSE 203 mg/dL (75-110); MAGNESIUM 1.9 mg/dL (1.6-2.3); POTASSIUM 3.9 mmol/L (3.6-5.0); SODIUM 144.1 mmol/L (137-145); TOTAL PROTEIN 7.2 g/dL (6.3-8.2)
[2016-12-08 07:17] LABS: CREATINE KINASE MB 0.5 ng/mL (<4.55); TROPONIN I 0.053 ng/mL
[2016-12-08] MEDS: LABETALOL HCL INJ 20 MG/4 ML DISP.SYRIN IV PRN (07:48)
[2016-12-08] MEDS: ENOXAPARIN SODIUM INJ 40 MG/0.4 ML DISP.SYRIN SUBCUT SCH (07:52)
[2016-12-08] MEDS ORDERED: ENOXAPARIN SODIUM INJ 40 MG/0.4 ML DISP.SYRIN SUBCUT SCH (08:00)
[2016-12-08] MEDS: FAMOTIDINE INJ/PF 20 MG/2 ML SDV IV SCH ×2 (09:13→17:14)
--- NOTE | 2016-12-08 12:43 | PDOC PROGRESS REPORT ---
Subjective Progress Note for:: 12/08/16 Subjective:: Patient is currently still intubated. No other events happens overnight Physical Exam Vital Signs: Temp Pulse Resp BP Pulse Ox 99.3 F 56 L 12 162/66 H 100 12/08/16 10:25 12/08/16 09:22 12/08/16 10:25 12/08/16 10:25 12/08/16 12:03 Intake & Output 12/07/16 12/08/16 12/09/16 06:59 06:59 06:59 Intake Total 1950 Output Total 760 182 Balance 1190 -182 Weight 81.2 kg Physical Exam: Currently intubated and under sedation's General appearance: PRESENT: no acute distress Eye exam: PRESENT: PERRLA Mouth exam: PRESENT: neck supple, tongue midline Additional comments: Still swelling in the lower lip having tongue swelling is getting better Neck exam: ABSENT: JVD Respiratory exam: PRESENT: clear to auscultation shereen Cardiovascular exam: PRESENT: +S1, +S2 GI/Abdominal exam: PRESENT: normal bowel sounds, soft Extremities exam: ABSENT: pedal edema Results Laboratory Results: 12/08/16 06:30 12/08/16 06:30 12/08/16 12/08/16 12/08/16 05:48 06:30 06:30 WBC 8.5 RBC 5.07 Hgb 14.0 Hct 43.3 MCV 85 MCH 27.7 MCHC 32.4 RDW 14.7 H Plt Count 175 Seg Neutrophils % 88.7 H Lymphocytes % 8.4 L Monocytes % 2.7 L Eosinophils % 0.0 Basophils % 0.2 Absolute Neutrophils 7.6 Absolute Lymphocytes 0.7 Absolute Monocytes 0.2 Absolute Eosinophils 0.0 Absolute Basophils 0.0 Carbonic Acid 1.04 L HCO3/H2CO3 Ratio 21:1 ABG pH 7.43 ABG pCO2 34.5 L ABG pO2 114.2 H ABG HCO3 22.5 ABG O2 Saturation 98.3 H ABG Base Excess -1.1 FiO2 30% Sodium 144.1 Potassium 3.9 Chloride 108 H Carbon Dioxide 23 Anion Gap 13 BUN 15 Creatinine 0.89 Est GFR ( Amer) > 60 Est GFR (Non-Af Amer) > 60 Glucose 203 H Calcium 10.2 Phosphorus 4.0 Magnesium 1.9 Total Bilirubin 0.7 AST 21 ALT 19 Alkaline Phosphatase 72 Total Protein 7.2 Albumin 4.0 12/07/16 12/07/16 12/08/16 18:30 18:30 00:15 Creatine Kinase 33 32 CK-MB (CK-2) 0.48 Troponin I 0.050 12/08/16 12/08/16 12/08/16 00:15 06:30 06:30 Creatine Kinase 34 CK-MB (CK-2) 0.43 0.50 Troponin I 0.045 0.053 Impressions: KUB X-Ray 12/07/16 14:17 IMPRESSION: NG tube placement as described. Chest X-Ray 12/08/16 06:00 IMPRESSION: No acute cardiopulmonary findings. Assessment & Plan - Diagnosis (1) Airway compromise Is this a current diagnosis for this admission?: YesPlan: Status post intubations currently patients follow with the pulmonary (2) Angioedema Qualifiers: Encounter type: initial encounter Qualified Code(s): T78.3XXA - Angioneurotic edema, initial encounter Is this a current diagnosis for this admission?: YesPlan: Continues to current medications I think it is getting better (3) Poorly-controlled hypertension Is this a current diagnosis for this admission?: YesPlan: Patient is very noncompliance several times discussed with patient and the in the office will put the patient's IV labetalol as needed (4) Diabetes mellitus type 2 in obese Is this a current diagnosis for this admission?: YesPlan: Patient's last A1c was 7.1 will put the patient on a sliding scale (5) Hyperlipemia Qualifiers: Hyperlipidemia type: unspecified Qualified Code(s): E78.5 - Hyperlipidemia, unspecified Is this a current diagnosis for this admission?: YesPlan: Continues current medications (6) Major depression Qualifiers: Major depression recurrence: recurrent Is this a current diagnosis for this admission?: YesPlan: Follow outpatients psych - Time Time Spent with patient: 15-24 minutes Medications reviewed and adjusted accordingly: Yes Anticipated discharge: Home Within: Other - Inpatient Certification Medical Necessity: Need Close Monitoring Due to Risk of Patient Decompensation, Need For IV Fluids 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
--- NOTE | 2016-12-08 14:20 | PDOC CONSULTATION ---
Consultation Consult Date: 12/07/16 Attending physician:: PRERNA LOERA Consult reason:: airway compromise History of Present Illness Admission Date/PCP: 12/07/16 16:38 PRERNA LOERA MD History of Present Illness: YEMI CARLSON is a 71 year old female This 71-year-old female came to the emergency department with a complaint of her tongue and the mouth swelling with her . According to the 30 minutes prior to arrival patient started developing this tongue and the mild swelling and patient had this before due to the lisinopril and that is why they came to the emergency department today. Patient's currently not taking any lisinopril. Patients took the Norvasc 5 mg in the morning. In the emergency department patient had a significant swelling in the mouth and the tongue and patient was unable to speak and the patient have a splitting this secretions and at that time he had physicians consult the ENT and patient underwent operating room and was intubated due to the airway productions and put in the ICU for further evaluation and treatment Patient's currently intubated and under sedation's Patients recently have a nothing new medications but patients recently a more depressed because of her brother and according to the patient is not taking lisinopril since the last incidence several years back Patients did not eat anything unusual and not taking any other usual medications Past Medical History Cardiac Medical History: Reports: Hypertension Denies: Coronary Artery Disease, Myocardial Infarction Pulmonary Medical History: Denies: Asthma, Bronchitis, Chronic Obstructive Pulmonary Disease (COPD), Pneumonia Neurological Medical History: Denies: Seizures Endocrine Medical History: Reports: Diabetes Mellitus Type 2 Musculoskeltal Medical History: Denies: Arthritis Psychiatric Medical History: Denies: Depression Hematology: Denies: Anemia Past Surgical History Past Surgical History: Reports: Appendectomy, Hysterectomy, Tubal Ligation Denies: Pacemaker Social History Information Source: [facility] Records Lives with: Family Smoking Status: Never Smoker Frequency of Alcohol Use: None Hx Recreational Drug Use: No Drugs: None Hx Prescription Drug Abuse: No - Advance Directive Resuscitation Status: Full Code Family History Family History: Reviewed & Not Pertinent Parental Family History Reviewed: No Children Family History Reviewed: No Sibling(s) Family History Reviewed.: No Medication/Allergy Home Medications: Amlodipine Besylate [Amlodipine Besylate] 10 mg PO DAILY 12/07/16 Metoprolol Succinate 75 mg PO DAILY 12/07/16 Pioglitazone HCl [Actos] 30 mg PO DAILY 12/08/16 Sertraline HCl [Zoloft] 25 mg PO DAILY 12/08/16 Zolpidem Tartrate [Ambien] 10 mg PO QHS 12/08/16 Allergies/Adverse Reactions: lisinopril Allergy (Verified 12/07/16 12:16) angioedema, tongue swollen Review of Systems ROS unobtainable: Due to endotracheal tube Physical Exam Vital Signs: Temp Pulse Resp BP Pulse Ox 99.3 F 52 L 12 159/64 H 100 12/08/16 12:00 12/08/16 12:00 12/08/16 12:00 12/08/16 12:00 12/08/16 12:03 Intake & Output 12/07/16 12/08/16 12/09/16 06:59 06:59 06:59 Intake Total 1950 Output Total 760 342 Balance 1190 -342 Weight 81.2 kg General appearance: PRESENT: no acute distress, disheveled, well-developed, well -nourished Head exam: PRESENT: atraumatic, normocephalic Eye exam: PRESENT: conjunctiva pale Mouth exam: PRESENT: dry mucosa, neck supple, other - ET tube tounge protruding from oral cavity facial swelling Neck exam: ABSENT: carotid bruit, JVD, lymphadenopathy, thyromegaly Respiratory exam: PRESENT: prolonged expiratory phas, rhonchi, symmetrical, unlabored Cardiovascular exam: PRESENT: RRR, +S1, +S2 Pulses: PRESENT: normal radial pulses GI/Abdominal exam: PRESENT: normal bowel sounds, soft. ABSENT: distended, guarding, mass, organolmegaly, rebound, tenderness Rectal exam: PRESENT: deferred Gentrourinary exam: PRESENT: indwelling catheter Musculoskeletal exam: PRESENT: normal inspection Skin exam: PRESENT: dry, warm Results Laboratory Results: 12/08/16 06:30 12/08/16 06:30 12/08/16 12/08/16 12/08/16 05:48 06:30 06:30 WBC 8.5 RBC 5.07 Hgb 14.0 Hct 43.3 MCV 85 MCH 27.7 MCHC 32.4 RDW 14.7 H Plt Count 175 Seg Neutrophils % 88.7 H Lymphocytes % 8.4 L Monocytes % 2.7 L Eosinophils % 0.0 Basophils % 0.2 Absolute Neutrophils 7.6 Absolute Lymphocytes 0.7 Absolute Monocytes 0.2 Absolute Eosinophils 0.0 Absolute Basophils 0.0 Carbonic Acid 1.04 L HCO3/H2CO3 Ratio 21:1 ABG pH 7.43 ABG pCO2 34.5 L ABG pO2 114.2 H ABG HCO3 22.5 ABG O2 Saturation 98.3 H ABG Base Excess -1.1 FiO2 30% Sodium 144.1 Potassium 3.9 Chloride 108 H Carbon Dioxide 23 Anion Gap 13 BUN 15 Creatinine 0.89 Est GFR ( Amer) > 60 Est GFR (Non-Af Amer) > 60 Glucose 203 H Calcium 10.2 Phosphorus 4.0 Magnesium 1.9 Total Bilirubin 0.7 AST 21 ALT 19 Alkaline Phosphatase 72 Total Protein 7.2 Albumin 4.0 12/07/16 12/07/16 12/08/16 18:30 18:30 00:15 Creatine Kinase 33 32 CK-MB (CK-2) 0.48 Troponin I 0.050 12/08/16 12/08/16 12/08/16 00:15 06:30 06:30 Creatine Kinase 34 CK-MB (CK-2) 0.43 0.50 Troponin I 0.045 0.053 Impressions: KUB X-Ray 12/07/16 14:17 IMPRESSION: NG tube placement as described. Chest X-Ray 12/08/16 06:00 IMPRESSION: No acute cardiopulmonary findings. Assessment & Plan - Diagnosis (1) Airway compromise Is this a current diagnosis for this admission?: YesPlan: gross compromise of airway (2) Angioedema Qualifiers: Encounter type: initial encounter Qualified Code(s): T78.3XXA - Angioneurotic edema, initial encounter Is this a current diagnosis for this admission?: Yes - Time Critical Time spent with patient: 35 or more minutes - 50 min
--- NOTE | 2016-12-08 14:20 | PDOC PROGRESS REPORT ---
Subjective Progress Note for:: 12/08/16 Subjective:: awake intubated Physical Exam Vital Signs: Temp Pulse Resp BP Pulse Ox 98.4 F 52 L 12 176/76 H 99 12/08/16 07:49 12/08/16 07:49 12/08/16 07:49 12/08/16 07:49 12/08/16 07:49 Intake & Output 12/07/16 12/08/16 12/09/16 06:59 06:59 06:59 Intake Total 1950 Output Total 760 32 Balance 1190 -32 Weight 81.2 kg General appearance: PRESENT: no acute distress, cooperative, obese, well- developed Head exam: PRESENT: atraumatic, normocephalic Eye exam: PRESENT: conjunctiva pale, EOMI Mouth exam: PRESENT: dry mucosa, neck supple, other - ET tube tounge decreased in size still protrudes from oral cavity Neck exam: ABSENT: carotid bruit, JVD, lymphadenopathy, thyromegaly Cardiovascular exam: PRESENT: RRR, +S1, +S2 Pulses: PRESENT: normal radial pulses GI/Abdominal exam: PRESENT: normal bowel sounds, soft. ABSENT: distended, guarding, mass, organolmegaly, rebound, tenderness Rectal exam: PRESENT: deferred Gentrourinary exam: PRESENT: indwelling catheter Musculoskeletal exam: PRESENT: normal inspection Neurological exam: PRESENT: awake Skin exam: PRESENT: dry, warm Results Laboratory Results: 12/08/16 06:30 12/08/16 06:30 12/08/16 12/08/16 12/08/16 05:48 06:30 06:30 WBC 8.5 RBC 5.07 Hgb 14.0 Hct 43.3 MCV 85 MCH 27.7 MCHC 32.4 RDW 14.7 H Plt Count 175 Seg Neutrophils % 88.7 H Lymphocytes % 8.4 L Monocytes % 2.7 L Eosinophils % 0.0 Basophils % 0.2 Absolute Neutrophils 7.6 Absolute Lymphocytes 0.7 Absolute Monocytes 0.2 Absolute Eosinophils 0.0 Absolute Basophils 0.0 Carbonic Acid 1.04 L HCO3/H2CO3 Ratio 21:1 ABG pH 7.43 ABG pCO2 34.5 L ABG pO2 114.2 H ABG HCO3 22.5 ABG O2 Saturation 98.3 H ABG Base Excess -1.1 FiO2 30% Sodium 144.1 Potassium 3.9 Chloride 108 H Carbon Dioxide 23 Anion Gap 13 BUN 15 Creatinine 0.89 Est GFR ( Amer) > 60 Est GFR (Non-Af Amer) > 60 Glucose 203 H Calcium 10.2 Phosphorus 4.0 Magnesium 1.9 Total Bilirubin 0.7 AST 21 ALT 19 Alkaline Phosphatase 72 Total Protein 7.2 Albumin 4.0 12/07/16 12/07/16 12/08/16 18:30 18:30 00:15 Creatine Kinase 33 32 CK-MB (CK-2) 0.48 Troponin I 0.050 12/08/16 12/08/16 12/08/16 00:15 06:30 06:30 Creatine Kinase 34 CK-MB (CK-2) 0.43 0.50 Troponin I 0.045 0.053 Impressions: KUB X-Ray 12/07/16 14:17 IMPRESSION: NG tube placement as described. Chest X-Ray 12/08/16 06:00 IMPRESSION: No acute cardiopulmonary findings. Assessment & Plan - Diagnosis (1) Airway compromise Is this a current diagnosis for this admission?: YesPlan: decreased but persistant (2) Angioedema Qualifiers: Encounter type: initial encounter Qualified Code(s): T78.3XXA - Angioneurotic edema, initial encounter Is this a current diagnosis for this admission?: YesPlan: improving slowly - Time Critical Time spent with patient: 25-34 minutes
[2016-12-08] MEDS ORDERED: AMLODIPINE BESYLATE 10 MG TABLET NG ONE (17:00)
[2016-12-08] MEDS: HYDRALAZINE HCL INJ/PF 20 MG/1 ML SDV IV PRN (17:14)
[2016-12-08] MEDS: INSULIN REG, HUMAN 100 UNIT/ML 3 ML VIAL (PYX) SUBCUT PRN (17:40)
[2016-12-08] MEDS: NORMAL SALINE 1000 ML 1,000 ML IV PRN (21:15)
[2016-12-09] MEDS: HYDRALAZINE HCL INJ/PF 20 MG/1 ML SDV IV PRN ×3 (02:12→19:05)
[2016-12-09 04:11] LABS: ABSOLUTE LYMPHOCYTES (AUTO) 0.6 10^3/uL (0.5-4.7); ABSOLUTE MONOCYTES (AUTO) 0.5 10^3/uL (0.1-1.4); ABSOLUTE NEUT (AUTO) 9.8 10^3/uL (1.7-8.2); BASOPHILS % (AUTO) 0.3 % (0-2); HEMATOCRIT 43.2 % (36.0-47.0); HGB HCT DIFFERENCE -1.2; LYMPHOCYTES % (AUTO) 5.1 % (13-45); MEAN CORPUSCULAR HEMOGLOBIN 27.7 pg (27.0-33.4); MEAN CORPUSCULAR HGB CONC 32.4 g/dL (32.0-36.0); MEAN CORPUSCULAR VOLUME 86 fl (80-97); MONOCYTES % (AUTO) 4.4 % (3-13); RED BLOOD COUNT 5.05 10^6/uL (3.72-5.28); RED CELL DISTRIBUTION WIDTH 15.5 % (11.5-14.0); SEGMENTED NEUTROPHILS % (AUTO) 90.2 % (42-78); WHITE BLOOD COUNT 10.8 10^3/uL (4.0-10.5)
[2016-12-09 04:20] LABS: ALANINE AMINOTRANSFERASE 24 U/L (9-52); ALBUMIN 3.7 g/dL (3.5-5.0); ALKALINE PHOSPHATASE 69 U/L (38-126); ANION GAP 11 (5-19); ASPARTATE AMINO TRANSFERASE 25 U/L (14-36); BILIRUBIN,DIRECT 0.3 mg/dL (0.0-0.4); BILIRUBIN,TOTAL 0.5 mg/dL (0.2-1.3); BLOOD UREA NITROGEN 15 mg/dL (7-20); CALCIUM 10.3 mg/dL (8.4-10.2); CARBON DIOXIDE 24 mmol/L (22-30); CHLORIDE 109 mmol/L (98-107); CREATININE RESULT 0.79 mg/dL (0.52-1.25); GLUCOSE 226 mg/dL (75-110); PHOSPHORUS 3.3 mg/dL (2.5-4.5); POTASSIUM 3.7 mmol/L (3.6-5.0); SODIUM 143.8 mmol/L (137-145); TOTAL PROTEIN 7.1 g/dL (6.3-8.2)
[2016-12-09] MEDS: METHYLPREDNISOLONE INJ 40 MG/1 ML SDV IV SCH ×3 (05:19→23:05)
[2016-12-09] MEDS: INSULIN REG, HUMAN 100 UNIT/ML 3 ML VIAL (PYX) SUBCUT PRN ×3 (05:20→23:14)
[2016-12-09] MEDS: DIPHENHYDRAMINE HCL 50 MG/ML VIAL IV SCH ×2 (05:20→18:04)
[2016-12-09] MEDS: PROPOFOL 100 ML IV PRN (05:22)
[2016-12-09] MEDS: NORMAL SALINE 1000 ML 1,000 ML IV PRN (05:23)
[2016-12-09 06:12] LABS: ARTERIAL BLOOD BASE EXCESS -0.2 mmol/L; ARTERIAL BLOOD O2 SATURATION 97.7 % (94-98)
--- NOTE | 2016-12-09 07:37 | RADIOLOGY REPORT (SQ) ---
EXAM DESCRIPTION: CHEST SINGLE VIEW COMPLETED DATE/TIME: 12/09/2016 6:52 am REASON FOR STUDY: resp fail COMPARISON: 12/08/2016. EXAM PARAMETERS: NUMBER OF VIEWS: One view. TECHNIQUE: Single frontal radiographic view of the chest acquired. RADIATION DOSE: NA LIMITATIONS: None. FINDINGS: LUNGS AND PLEURA: No opacities, masses or pneumothorax. No pleural effusion. MEDIASTINUM AND HILAR STRUCTURES: No masses. Contour normal. HEART AND VASCULAR STRUCTURES: Adequate appearing endotracheal tube and nasogastric tube. Atheroscle rosis. BONES: No acute findings. HARDWARE: None in the chest. OTHER: No other significant finding. IMPRESSION: No significant interval change. Lines and tubes. TECHNICAL DOCUMENTATION: JOB ID: [id number]
[2016-12-09] MEDS ORDERED: DEXAMETHASONE SOD PHOSPHATE INJ 4 MG/1 ML VIAL IV ONE (08:29)
[2016-12-09] MEDS: ENOXAPARIN SODIUM INJ 40 MG/0.4 ML DISP.SYRIN SUBCUT SCH (08:45)
[2016-12-09] MEDS ORDERED: FUROSEMIDE INJ/PF 20 MG/2 ML SDV IV ONE (09:00)
[2016-12-09] MEDS ORDERED: DEXAMETHASONE SOD PHOS INJ 10 MG/1 ML VIAL IV ONE (09:00)
[2016-12-09] MEDS ORDERED: RACEPINEPHRINE HCL 2.25% NEB 0.5 ML AMPUL NEB ONE (09:00)
[2016-12-09] MEDS: FAMOTIDINE INJ/PF 20 MG/2 ML SDV IV SCH ×2 (10:14→18:04)
[2016-12-09] MEDS: AMLODIPINE BESYLATE 10 MG TABLET NG SCH (10:15)
--- NOTE | 2016-12-09 12:03 | PDOC PROGRESS REPORT ---
Subjective Progress Note for:: 12/09/16 Subjective:: Patient is currently doing fair. Patient's as per discussed with Dr. Saldana's in ICU plan to extubate today but other than that no other events happen Physical Exam Vital Signs: Temp Pulse Resp BP Pulse Ox 98.1 F 72 23 H 197/77 H 98 12/09/16 06:03 12/09/16 10:05 12/09/16 10:05 12/09/16 10:05 12/09/16 11:29 Intake & Output 12/08/16 12/09/16 12/10/16 06:59 06:59 06:59 Intake Total 1950 3300 Output Total 760 1267 150 Balance 1190 2033 -150 Weight 81.2 kg 83.1 kg Physical Exam: Currently intubated General appearance: PRESENT: no acute distress Eye exam: PRESENT: PERRLA Mouth exam: PRESENT: other Additional comments: The tongue is still little bit swelling but much better and the lower lip is mild swelling is there Neck exam: ABSENT: carotid bruit, full ROM, JVD, lymphadenopathy, meningismus, tenderness, thyromegaly, tracheal deviation, tracheostomy, other Respiratory exam: PRESENT: clear to auscultation shereen Cardiovascular exam: PRESENT: +S1, +S2 GI/Abdominal exam: PRESENT: normal bowel sounds, soft Extremities exam: ABSENT: pedal edema Neurological exam: PRESENT: alert, awake Results Laboratory Results: 12/09/16 03:59 12/09/16 03:59 12/09/16 12/09/16 12/09/16 03:59 03:59 05:45 WBC 10.8 H RBC 5.05 Hgb 14.0 Hct 43.2 MCV 86 MCH 27.7 MCHC 32.4 RDW 15.5 H Plt Count 156 Seg Neutrophils % 90.2 H Lymphocytes % 5.1 L Monocytes % 4.4 Eosinophils % 0.0 Basophils % 0.3 Absolute Neutrophils 9.8 H Absolute Lymphocytes 0.6 Absolute Monocytes 0.5 Absolute Eosinophils 0.0 Absolute Basophils 0.0 Carbonic Acid 1.10 HCO3/H2CO3 Ratio 21:1 ABG pH 7.43 ABG pCO2 36.7 ABG pO2 98.5 ABG HCO3 23.8 ABG O2 Saturation 97.7 ABG Base Excess -0.2 FiO2 30% Sodium 143.8 Potassium 3.7 Chloride 109 H Carbon Dioxide 24 Anion Gap 11 BUN 15 Creatinine 0.79 Est GFR ( Amer) > 60 Est GFR (Non-Af Amer) > 60 Glucose 226 H Calcium 10.3 H Phosphorus 3.3 Magnesium 2.0 Total Bilirubin 0.5 AST 25 ALT 24 Alkaline Phosphatase 69 Total Protein 7.1 Albumin 3.7 12/07/16 12/07/16 12/08/16 18:30 18:30 00:15 Creatine Kinase 33 32 CK-MB (CK-2) 0.48 Troponin I 0.050 12/08/16 12/08/16 12/08/16 00:15 06:30 06:30 Creatine Kinase 34 CK-MB (CK-2) 0.43 0.50 Troponin I 0.045 0.053 Impressions: KUB X-Ray 12/07/16 14:17 IMPRESSION: NG tube placement as described. Chest X-Ray 12/09/16 06:00 IMPRESSION: No significant interval change. Lines and tubes. Assessment & Plan - Diagnosis (1) Airway compromise Is this a current diagnosis for this admission?: YesPlan: Currently intubated the plan was extubated while patient is currently doing well and the swelling is also coming down (2) Angioedema Qualifiers: Encounter type: initial encounter Qualified Code(s): T78.3XXA - Angioneurotic edema, initial encounter Is this a current diagnosis for this admission?: YesPlan: Continues to steroid Pepcid in the benadryl (3) Poorly-controlled hypertension Is this a current diagnosis for this admission?: YesPlan: Continues to current medications (4) Diabetes mellitus type 2 in obese Is this a current diagnosis for this admission?: YesPlan: Patient's last A1c was 7.1 will put the patient on a sliding scale (5) Hyperlipemia Qualifiers: Hyperlipidemia type: unspecified Qualified Code(s): E78.5 - Hyperlipidemia, unspecified Is this a current diagnosis for this admission?: YesPlan: Continues current medications (6) Major depression Qualifiers: Major depression recurrence: recurrent Is this a current diagnosis for this admission?: Yes - Time Time Spent with patient: 15-24 minutes Medications reviewed and adjusted accordingly: Yes Anticipated discharge: Home Within: Other - Inpatient Certification Medical Necessity: Need Close Monitoring Due to Risk of Patient Decompensation Post Hospital Care: 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 Not sure about clear etiology consider to put on a prophylactic Xyzal and Pepcid at home order some allergy testings and follow outpatient shaft headman for further evaluations
[2016-12-09 13:30] LABS: CREATINE KINASE MB 0.53 ng/mL (<4.55); TROPONIN I 0.074 ng/mL
[2016-12-09] MEDS: LABETALOL HCL INJ 20 MG/4 ML DISP.SYRIN IV PRN (14:39)
[2016-12-09] MEDS ORDERED: METOPROLOL SUCCINATE 50 MG TAB.SR.24H PO ONE (17:00)
--- NOTE | 2016-12-09 17:55 | EKG REPORT ---
SEVERITY:- ABNORMAL ECG - SINUS RHYTHM BORDERLINE R WAVE PROGRESSION, ANTERIOR LEADS ABNORMAL T, CONSIDER ISCHEMIA, LATERAL LEADS : Confirmed by: Sarah Heart 09-Dec-2016 17:55:12
[2016-12-09 18:03] LABS: CREATINE KINASE MB 0.43 ng/mL (<4.55); TROPONIN I 0.079 ng/mL
--- NOTE | 2016-12-09 18:58 | XCELERA REPORT ---
[address] [address] Transthoracic Echocardiogram Report Name: YEMI CARLSON Age: 71 yrs Gender: Female : 1945 Patient Status: Inpatient Patient Location: ICU\S\603\S\A Study Date: 12/09/2016 01:55 PM Height: 62 in Weight: 183 lb BSA: 1.8 m2 Procedure: A two-dimensional transthoracic echocardiogram with color flow and Doppler was performed. Study Quality: Fair. Reason For Study: abnormal EKG, murmur History: abnormal EKG, murmur. Ordering Physician: LENI BELTRE Performed By: Oumou Marshall Interpretation Summary The left ventricle is normal in size. There is normal left ventricular wall thickness. LV EF is > than 70% Left ventricular systolic function is normal. Doppler measurements suggest impaired left ventricular relaxation, which is associated with grade I/IV or mild diastolic dysfunction The left ventricular wall motion is normal. The left atrial size is normal. There is no evidence of mitral valve prolapse. There is no vegetation seen on the mitral valve. There is no mitral valve stenosis. There is a trace amount of mitral regurgitation The aortic valve is trileaflet. The aortic valve opens well. There is no aortic valvular vegetation. There is no aortic valve stenosis There is no LVOT obstruction. There is Mild aortic sclerosis without stenosis. No aortic regurgitation is present. There is no tricuspid stenosis. There is a trace to mild amount of tricuspid regurgitation There is mild pulmonary hypertension by echo RVSP is 45 m , with RA mean of 5. Trace to mild SD. There is no pulmonic valvular stenosis. There is no pericardial effusion. MMode/2D Measurements \T\ Calculations RVDd: 2.6 cm LVIDd: 4.3 cm FS: 41.9 % Ao root diam: 2.8 cm IVSd: 1.0 cm LVIDs: 2.5 cm EDV(Teich): 81.3 ml LVPWd: 1.0 cm ESV(Teich): 21.8 ml Ao root area: 6.2 cm2 EF(Teich): 73.2 % LA dimension: 3.1 cm Doppler Measurements \T\ Calculations MV E max fidel: MV P1/2t max fidel: Ao V2 max: LV V1 max P.6 cm/sec 110.6 cm/sec 144.3 cm/sec 5.8 mmHg MV A max fidel: MV P1/2t: 81.1 msec Ao max PG: LV V1 max: 116.5 cm/sec 8.3 mmHg 120.9 cm/sec MV E/A: 0.94 MVA(P1/2t): 2.7 cm2 MV dec slope: 399.3 cm/sec2 MV dec time: 0.28 sec PA V2 max: PI end-d fidel: TR max fidel: 104.1 cm/sec 116.7 cm/sec 316.3 cm/sec PA max PG: TR max P.3 mmHg 40.0 mmHg Left Ventricle The left ventricle is normal in size. There is normal left ventricular wall thickness. LV EF is > than 70%. Left ventricular systolic function is normal. Doppler measurements suggest impaired left ventricular relaxation, which is associated with grade I/IV or mild diastolic dysfunction. The left ventricular wall motion is normal. There is no thrombus. There is no ventricular septal defect visualized. Right Ventricle The right ventricle is normal in size and function. Atria The right atrium is normal. The left atrial size is normal. The interatrial septum is intact with no evidence for an atrial septal defect. Mitral Valve There is mild mitral annular calcification. There is no evidence of mitral valve prolapse. There is no vegetation seen on the mitral valve. There is no mitral valve stenosis. There is a trace amount of mitral regurgitation. Aortic Valve The aortic valve is trileaflet. The aortic valve opens well. There is no aortic valvular vegetation. There is no aortic valve stenosis. There is no LVOT obstruction. There is Mild aortic sclerosis without stenosis. No aortic regurgitation is present. Tricuspid Valve There is no tricuspid stenosis. There is a trace to mild amount of tricuspid regurgitation. There is mild pulmonary hypertension by echo. RVSP is 45 m , with RA mean of 5. Pulmonic Valve There is no pulmonic valvular stenosis. Trace to mild SD. Great Vessels The aortic root is normal size. Effusions There is no pericardial effusion. : LENI BELTRE > Leni Betlre
[2016-12-09] MEDS ORDERED: ZOLPIDEM TARTRATE 5 MG TABLET ONE (23:21)
[2016-12-09 23:57] LABS: CREATINE KINASE MB 0.95 ng/mL (<4.55)
[2016-12-10 00:01] LABS: TROPONIN I 0.086 ng/mL
[2016-12-10] MEDS ORDERED: ZOLPIDEM TARTRATE 5 MG TABLET PO PRN (00:15)
[2016-12-10 04:58] LABS: ANION GAP 12 (5-19); BLOOD UREA NITROGEN 20 mg/dL (7-20); CALCIUM 10.2 mg/dL (8.4-10.2); CARBON DIOXIDE 27 mmol/L (22-30); CHLORIDE 104 mmol/L (98-107); CREATININE RESULT 0.81 mg/dL (0.52-1.25); GLUCOSE 190 mg/dL (75-110); POTASSIUM 3.4 mmol/L (3.6-5.0); SODIUM 143.1 mmol/L (137-145)
[2016-12-10 05:03] LABS: HEMATOCRIT 42.4 % (36.0-47.0); HEMOGLOBIN 13.7 g/dL (12.0-15.5); HGB HCT DIFFERENCE -1.3; MEAN CORPUSCULAR HEMOGLOBIN 27.3 pg (27.0-33.4); MEAN CORPUSCULAR HGB CONC 32.3 g/dL (32.0-36.0); MEAN CORPUSCULAR VOLUME 85 fl (80-97); RED BLOOD COUNT 5.01 10^6/uL (3.72-5.28); RED CELL DISTRIBUTION WIDTH 15.1 % (11.5-14.0)
[2016-12-10] MEDS: DIPHENHYDRAMINE HCL 50 MG/ML VIAL IV SCH (05:08)
[2016-12-10] MEDS: METHYLPREDNISOLONE INJ 40 MG/1 ML SDV IV SCH ×3 (05:08→17:50)
[2016-12-10] MEDS: INSULIN REG, HUMAN 100 UNIT/ML 3 ML VIAL (PYX) SUBCUT PRN ×4 (05:09→23:58)
[2016-12-10 05:15] LABS: FREE T3 2.78 pg/mL (2.77-5.27)
[2016-12-10 05:29] LABS: THYROID STIMULATING HORMONE 0.17 uIU/mL (0.47-4.68)
--- NOTE | 2016-12-10 05:34 | CONSULTATION REPORT E ---
Consultation Report NAME: YEMI CARLSON : 1945 AGE: 71Y DATE: 12/09/2016 603 A TO: TABBY BELTRE M.D. FROM: MAXIMILIAN LOERA M.D. Requesting Physician REASON FOR CONSULTATION: New T wave inversion in lateral leads without any LVH on the EKG. HISTORY OF PRESENT ILLNESS: The patient was seen from 7 p.m. to 7:40 p.m. Note, the patient is not able to talk much She was just extubated today at 10:00 o'clock in the morning. The patient is a 71-year-old female, who came to the emergency room with complaint of tongue and mouth swelling with her on 12/07/2016. She had so much secretions and edema of her tongue and throat, that the patient had to be intubated to protect her airway. Subsequently today at 10 o'clock, the patient was extubated. On routine inspection of the monitor, the nurse found that the patient had some T wave changes in the lateral leads and got a 12-lead EKG. This showed borderline R wave progression anterior leads, sinus rhythm with mild T inversion in the lateral leads without any abnormal LVH voltage. The patient denies any chest pain or discomfort. There is no shortness of breath. There is no PND or orthopnea. There is no leg edema. There are no palpitations or syncope. There is no arrhythmia seen on the monitor. The patient still has a little bit of swelling of her face, tongue and lips. There is no fever, chills, or rigors. PAST MEDICAL HISTORY: 1. In March 2016, the patient was admitted with angioedema, which at that time did not require intubation and it was thought the angioedema was secondary to lisinopril. This is the fourth episode that the patient is coming in, this time she had to be intubated. The patient states prior to taking lisinopril, she had 2 episodes of angioedema with generalized swelling, as per the patient and the . The patient is not able to talk much because of secretions still in her throat. 2. She has history of hypertension. 3. History of diabetes mellitus type 2. She denies any history of asthma, bronchitis, COPD or pneumonia. She has no history of anxiety or depression. She has no history of arthritis. There no history of coronary artery disease, myocardial infarction, congestive heart failure, chest or angina symptoms. No cardiac arrhythmias. No history of thyroid disease. PAST SURGICAL HISTORY: Positive for: 1. Appendectomy. 2. Hysterectomy. 3. Tubal ligation. SOCIAL HISTORY: She does not smoke. There is no history of ETOH abuse. FAMILY HISTORY: Positive for diabetes mellitus and hypertension. Negative for coronary artery disease CODE STATUS: The patient is a FULL CODE. Her is her surrogate healthcare decision maker. ALLERGIES: LISINOPRIL. MEDICATIONS: 1. Tylenol 650 mg p.o. q.4 hours p.r.n. 2. Amlodipine 10 mg daily. 3. Dexamethasone 8 mg IV x1 on December 07. 4. Hypoglycemic precautions with Dextrose Glutose 40% gel 15 grams p.o. and 30 grams p.o. p.r.n. hypoglycemia. 5. Hypoglycemic precautions with Dextrose 50%, 25 grams IV p.r.n. hypoglycemia. 6. Diphenhydramine 25 mg IV q.12 hours. 7. Lovenox 20 mg q.a.m. for DVT/PE prophylaxis. 8. Pepcid 20 mg IV b.i.d. 9. Lasix 40 mg x1 this morning. 10. Glucovance 1 mg IM p.r.n. hypoglycemia. 11. Hydralazine 20 mg IV q.6 hours p.r.n.. 12. Accu-Chek q. morning and bedtime. 13. *------* 10 mg IV q.4 hours p.r.n. 14. Methylprednisolone/Solu-Medrol 40 mg IV q.8 hours. 15. Metoprolol 75 mg succinate/Toprol XL daily. 16. *------* 0.5 mg nebulizer treatment x1 after extubation. REVIEW OF SYSTEMS: CONSTITUTIONAL: Denies any fevers, chills or rigors. Complains of generalized fatigue and weakness. HEENT: Head: Denies any headaches or head injury. Eyes: No history of amblyopia or diplopia. No history of amaurosis fugax. Ears: No history of hearing loss, no history of tinnitus, no history of vertigo. Nose: No history of hay fever. No history of nasal polyps or nosebleeds. Mouth: No history of altered taste sensation, no ulcers in the mouth. Excess secretions still in the throat. Throat: She did have some dysphagia due to angioedema, but that is resolved now. There is no history of recurrent sore throat. SKIN: No history of ecchymoses or petechia. She has a past history of urticaria with the angioedema and generalized swelling of the body. She has had 4 such episodes, the last one requiring admission December 07 and prior to that, March 2016. She did not require intubation. NECK: There is no goiter. There is no enlarged neck lymph nodes. There is no neck pain or symptoms of C-spine arthritis. LUNGS: No history of asthma or COPD. No history of sleep apnea. No history of pulmonary embolism. No history of hemoptysis. No history of cough or wheezing. No history of pleuritic chest pain. CARDIAC: No history of coronary artery disease. No history of congestive heart failure. No history of angina. No history of ND. History of hypertension, not very well controlled. No history of palpitations. No history of syncope. No history of PND or orthopnea. No leg edema. GASTROINTESTINAL: No history of GI bleed. No history of fatty food intolerance. No history of abdominal pain. No history of jaundice. No history of cirrhosis of the liver. MUSCULOSKELETAL: Denies arthritis or collagen vascular disease. ENDOCRINE: History of diabetes mellitus type 2, noninsulin-dependent. No history of polydipsia, polyuria. No history of thyroid disorder. No history of heat or cold intolerance. No history of hirsutism. No history of excessive sweating. RENAL: No history of chronic kidney disease. No symptoms of urinary tract infections. History of hematuria, pyuria or dysuria. CENTRAL NERVOUS SYSTEM: No history of TIA or CVA. No history of headaches, migraines or seizures. No history of gait imbalance. PSYCHIATRIC: No history of anxiety or depression. No history of suicidal ideation. No history of homicidal ideation. VASCULAR: No history of calf or buttock claudication. No history of DVT. HEMATOLOGICAL: No history of hematological disorder. No history of clotting disorders, blood dyscrasia or bleeding diathesis. PHYSICAL EXAMINATION: GENERAL: The patient is moderately obese, in some distress due to still some swelling of her throat, lips and tongue, but which is mild. VITAL SIGNS: Earlier she was afebrile with a temperature 98.8 degrees Fahrenheit, pulse 83 beats/min. Blood pressure not well controlled at 178/73, respirations 21 per minute, O2 saturation 98% on 2 liters nasal cannula. HEENT: Head is atraumatic, normocephalic. Eyes: Pupils are equal, round, regular, reactive to light and accommodation. Extraocular movements are normal. There is no conjunctival pallor. There is no scleral icterus. Ears: Tympanic membranes are intact. External auditory canals are clear. Nose: There is no deviated nasal septum. There are no nasal polyps. Mouth: There is still some swelling of her lips and tongue and some secretions back of throat, but she is not aspirating. Throat: She has some mild dysphagia, which is getting much better. There is no recurrent sore throat. SKIN: At present there are some vesicular lesions of the skin, along with the facial edema and also the lip edema and tongue swelling. There is no petechiae or ecchymoses. NECK: Supple. There is no JVD. Carotids are equal. There is no bruit. There is no lymphadenopathy. Trachea is central. LUNGS: Show a few rhonchi secondary to secretions in her throat, but otherwise fairly clear. HEART: S1 and S2 are heard. There is no S3 gallop. There is no S4 gallop. There is a systolic murmur in the left sternal border and apex. There is no rub. ABDOMEN: Soft, obese, nontender. There is no hepatosplenomegaly. Bowel sounds are well heard. EXTREMITIES: Femorals are deep. Femorals are diminished. There are no femoral bruits. Leg pulses are slightly diminished. There is no pedal edema. There is no DVT or cellulitis. There is no cyanosis or clubbing. There is no calf tenderness. CENTRAL NERVOUS SYSTEM: The patient is conscious, awake, alert, oriented x3 with no focal deficits. PSYCHIATRIC: The patient does not appear to be anxious or depressed, but patient has a flat affect. LABORATORY DATA: Her laboratory data has been reviewed. Today's labs showed white count of 10,800, hemoglobin 14, hematocrit 43.2, platelet count 156,000. The patient's sodium is 143.8, potassium 3.7, chloride 109, CO2 24, BUN 15, creatinine 0.79, GFR greater than 60, glucose 226, calcium slightly high at 10.3. Liver function tests are normal. Her total protein 7.1, albumin 3.7. Troponin-I was 0.045, 0.053, 0.074 and 0.079. The CK-MB was negative. ProTime 13, INR 0.92, PTT 30.7. ABG today: pH 7.43, PCO2 36.7, PO2 98.5. O2 saturation 97.7 on 35% FiO2 and hence the patient was extubated. The patient's complimentary profile was normal at 28. Her functional C1 esterase inhibitor is pending. The patient's chest x-ray today shows there are no opacities, masses or pneumothorax. No pleural effusion. No evidence of heart failure. The patient's other reports have been reviewed. The patient's EKG done today at 10:36 a.m. this morning soon after extubation showed sinus rhythm with borderline R wave progression in anterior leads. Abnormal T wave in anterolateral leads. Note, no voltage criteria for LVH. This may be secondary to patient's uncontrolled blood pressure. The patient echocardiogram showed the left ventricle normal in size. There is no LVH. LV ejection fraction greater than 70%. Left ventricular systolic function is normal. Doppler measurements suggest impaired left ventricular relaxation. A grade 1/4 mild diastolic dysfunction. Left ventricular wall motion is normal. Left ventricular size is normal. No evidence of mitral valve prolapse. There is no vegetation seen on the mitral valve. There is no mitral valve stenosis. There is trace amount of mitral regurgitation. The aortic valve is trileaflet. The aortic valve opens well without aortic stenosis. There is no LV obstruction. There is mild aortic sclerosis without stenosis. There is no aortic regurgitation. There is no tricuspid stenosis. There is trace to mild amount of tricuspid regurgitation. There is mild pulmonary hypertension. There is no pulmonic stenosis. There is trace to mild pulmonic regurgitation. There is no pericardial effusion. IMPRESSION: 1. LATERAL T WAVE CHANGES MOST LIKELY DUE TO PATIENT'S BLOOD PRESSURE NOT BEING CONTROLLED. The patient is asymptomatic and there is no evidence of a evn-IG-zypxgelhj myocardial infarction other than borderline elevation of troponin-I. 2. ANGIOEDEMA. Although the patient states there is no family history of angioedema, this may not just be related to drugs and the patient needs outpatient immunology/allergy consult since this is the fourth episode. This may be due to a number of factors such as *------* inhibitor deficiency. Also, would recommend to get thyroid antibodies to see if this is a problem with thyroid. Also, would recommend a workup for autoimmune disease and urticaria. Unlikely to be hereditary angioedema since there is no other person in the family with this. 3. HYPERTENSION, NOT WELL CONTROLLED. We will recommend adding hydralazine to the patient's regimen. Continue beta seth. 4. DIABETES MELLITUS TYPE 2, NONINSULIN-DEPENDENT AT PRESENT. The patient's blood sugars may be a little bit high due to being on steroids. Continue steroids. Continue current medications. 5. OBESITY. 6. STATUS INTUBATION FOR ANGIOEDEMA. At present, the patient is extubated. 7. HYPERLIPIDEMIA. Continue current medication. 8. MOST LIKELY PATIENT HAS MAJOR DEPRESSION, ALTHOUGH SHE DENIES IT. 9. ABNORMAL ELECTROCARDIOGRAM WITH NEW T WAVE INVERSION IN LATERAL LEAD WITHOUT ANY EVIDENCE OF LEFT VENTRICULAR HYPERTROPHY, BUT THE PATIENT'S BLOOD PRESSURE IS NOT WELL CONTROLLED AND THIS MAY BE CONTRIBUTING TO THE PATIENT'S EKG CHANGES. Would recommend repeat the patient's EKG once the blood pressure is under good control. TIME SPENT: Forty minutes spent on this patient with more than 50% of the time spent on direct patient care, discussed echo findings with the patient and also with Dr. Maximilian Loera. Medications have been reviewed. RECOMMENDATIONS: I would recommend an allergy/immunology workup to get to the bottom of the patient's cause of angioedema. Danazole might be a drug to use in this case, although it can cause hirsutism. Medications have been reviewed. Also, later once the patient's angioedema subsides, would recommend the patient have an IV Lasix and Cardiolite stress test to make sure that the patient does not have coronary artery disease, although there is no family history of coronary artery disease. She does have risk factors of age, hypertension, diabetes mellitus and also abnormal EKG. These EKG findings are new from prior EKG done in March of 2016. This is a case that could highly complicate medical decision making due to the patient's new EKG changes and the patient not having any anginal symptoms. Also, the patient's echocardiogram with no wall motion abnormality and no significant valvular disease and only mild pulmonary hypertension. Note, more than 50% of the time was spent in direct patient care. Medications, as mentioned, have been reviewed. We will follow with you. We will recheck the patient's EKG and troponin-I in the a.m. Thanking you. DICTATING PHYSICIAN: TABBY BELTRE M.D. [id number] PHY#: [id number] ID: [id number] JOB#: [id number] ACCT: [id number] cc:TABBY BELTRE M.D. >
[2016-12-10 05:54] LABS: BASOPHILS % (MANUAL) 0 % (0-2); EOSINOPHILS % (MANUAL) 0 % (0-6); LYMPHOCYTES % (MANUAL) 4 % (13-45); TOTAL CELLS COUNTED 100
[2016-12-10 05:55] LABS: ANISOCYTOSIS 1+; TOXIC GRANULATION SLIGHT; TOXIC VACUOLATION PRESENT
[2016-12-10] MEDS ORDERED: POTASSIUM CHLORIDE 10 MEQ TABLET.SA PO ONE (09:00)
[2016-12-10] MEDS: AMLODIPINE BESYLATE 10 MG TABLET NG SCH (11:22)
[2016-12-10] MEDS: FAMOTIDINE 20 MG TABLET PO SCH ×2 (11:22→21:53)
[2016-12-10] MEDS: DIPHENHYDRAMINE HCL 25 MG CAPSULE PO SCH ×2 (11:22→17:49)
[2016-12-10] MEDS: ENOXAPARIN SODIUM INJ 40 MG/0.4 ML DISP.SYRIN SUBCUT SCH (11:22)
[2016-12-10] MEDS: METOPROLOL SUCCINATE 50 MG TAB.SR.24H PO SCH (11:23)
--- NOTE | 2016-12-10 12:07 | PDOC PROGRESS REPORT ---
Subjective Progress Note for:: 12/10/16 Subjective:: Patient is currently extubated currently doing well. Dr. Puentes suggest outpatient stress test Physical Exam Vital Signs: Temp Pulse Resp BP Pulse Ox 98.6 F 53 L 16 164/69 H 97 12/10/16 06:00 12/10/16 07:53 12/10/16 06:00 12/10/16 05:34 12/10/16 06:00 Intake & Output 12/09/16 12/10/16 12/11/16 06:59 06:59 06:59 Intake Total 3300 1450 Output Total 1267 3925 Balance 2033 -2475 Weight 83.1 kg 80.8 kg General appearance: PRESENT: no acute distress, well-developed, well-nourished Head exam: PRESENT: atraumatic, normocephalic Eye exam: PRESENT: conjunctiva pink, EOMI, PERRLA. ABSENT: scleral icterus Ear exam: PRESENT: normal external ear exam Mouth exam: PRESENT: moist, tongue midline Neck exam: PRESENT: full ROM. ABSENT: carotid bruit, JVD, lymphadenopathy, thyromegaly Respiratory exam: PRESENT: clear to auscultation shereen Cardiovascular exam: PRESENT: RRR. ABSENT: diastolic murmur, rubs, systolic murmur Pulses: PRESENT: normal dorsalis pedis pul, +2 pedal pulses bilateral Vascular exam: PRESENT: normal capillary refill GI/Abdominal exam: PRESENT: normal bowel sounds, soft. ABSENT: distended, guarding, mass, organolmegaly, rebound, tenderness Rectal exam: PRESENT: deferred Neurological exam: PRESENT: alert, awake, oriented to person, oriented to place , oriented to time, oriented to situation, CN II-XII grossly intact. ABSENT: motor sensory deficit Psychiatric exam: PRESENT: appropriate affect, normal mood. ABSENT: homicidal ideation, suicidal ideation Skin exam: PRESENT: dry, intact, warm. ABSENT: cyanosis, rash Results Laboratory Results: 12/10/16 04:35 12/10/16 04:35 12/10/16 12/10/16 12/10/16 04:35 04:35 04:35 WBC 11.0 H RBC 5.01 Hgb 13.7 Hct 42.4 MCV 85 MCH 27.3 MCHC 32.3 RDW 15.1 H Plt Count 191 Seg Neutrophils % Not Reportable Lymphocytes % Not Reportable Monocytes % Not Reportable Eosinophils % Not Reportable Basophils % Not Reportable Absolute Neutrophils Not Reportable Absolute Lymphocytes Not Reportable Absolute Monocytes Not Reportable Absolute Eosinophils Not Reportable Absolute Basophils Not Reportable Sodium 143.1 Potassium 3.4 L Chloride 104 Carbon Dioxide 27 Anion Gap 12 BUN 20 Creatinine 0.81 Est GFR ( Amer) > 60 Est GFR (Non-Af Amer) > 60 Glucose 190 H Calcium 10.2 TSH 0.17 L Free T4 1.15 Free T3 pg/mL 2.78 12/07/16 12/07/16 12/08/16 18:30 18:30 00:15 Creatine Kinase 33 32 CK-MB (CK-2) 0.48 Troponin I 0.050 12/08/16 12/08/16 12/08/16 00:15 06:30 06:30 Creatine Kinase 34 CK-MB (CK-2) 0.43 0.50 Troponin I 0.045 0.053 12/09/16 12/09/16 12/09/16 12:29 12:29 17:20 Creatine Kinase 58 56 CK-MB (CK-2) 0.53 Troponin I 0.074 12/09/16 12/09/16 12/09/16 17:20 23:28 23:28 Creatine Kinase 47 CK-MB (CK-2) 0.43 0.95 Troponin I 0.079 0.086 12/10/16 04:35 Creatine Kinase CK-MB (CK-2) Troponin I 0.098 Impressions: KUB X-Ray 12/07/16 14:17 IMPRESSION: NG tube placement as described. Chest X-Ray 12/09/16 06:00 IMPRESSION: No significant interval change. Lines and tubes. Assessment & Plan - Diagnosis (1) Airway compromise Is this a current diagnosis for this admission?: YesPlan: Currently extubated and all clear (2) Angioedema Qualifiers: Encounter type: initial encounter Qualified Code(s): T78.3XXA - Angioneurotic edema, initial encounter Is this a current diagnosis for this admission?: YesPlan: All resolved (3) Poorly-controlled hypertension Is this a current diagnosis for this admission?: YesPlan: Add the hydralazine 25 mg p.o. every 8 (4) Diabetes mellitus type 2 in obese Is this a current diagnosis for this admission?: YesPlan: Patient's last A1c was 7.1 will put the patient on a sliding scale (5) Hyperlipemia Qualifiers: Hyperlipidemia type: unspecified Qualified Code(s): E78.5 - Hyperlipidemia, unspecified Is this a current diagnosis for this admission?: YesPlan: Continues current medications (6) Major depression Qualifiers: Major depression recurrence: recurrent Is this a current diagnosis for this admission?: Yes - Time Time Spent with patient: 15-24 minutes Medications reviewed and adjusted accordingly: Yes Anticipated discharge: Home Within: within 24 hours - Inpatient Certification Medical Necessity: Need Close Monitoring Due to Risk of Patient Decompensation Post Hospital Care: [facility] Documentation - Plan Summary Plan Summary: Patient was transferred to the [facility] in stable discharge home soon
--- NOTE | 2016-12-10 12:56 | PDOC PROGRESS REPORT ---
Subjective Progress Note for:: 12/09/16 Subjective:: awake intubated Physical Exam Vital Signs: Temp Pulse Resp BP Pulse Ox 98.1 F 63 12 153/63 H 96 12/09/16 06:03 12/08/16 20:00 12/09/16 06:03 12/09/16 06:03 12/09/16 08:00 Intake & Output 12/08/16 12/09/16 12/10/16 06:59 06:59 06:59 Intake Total 1950 3300 Output Total 760 1267 Balance 1190 2033 Weight 81.2 kg 83.1 kg General appearance: PRESENT: no acute distress, cooperative, disheveled, well- developed Head exam: PRESENT: atraumatic, normocephalic Eye exam: PRESENT: conjunctiva pale, EOMI Mouth exam: PRESENT: dry mucosa, neck supple, tongue midline - swelling decreased, other - ET tube Neck exam: PRESENT: carotid bruit Respiratory exam: PRESENT: decreased breath sounds, rhonchi, symmetrical, unlabored Cardiovascular exam: PRESENT: RRR, +S1, +S2 Pulses: PRESENT: normal radial pulses GI/Abdominal exam: PRESENT: normal bowel sounds, soft. ABSENT: distended, guarding, mass, organolmegaly, rebound, tenderness Rectal exam: PRESENT: deferred Gentrourinary exam: PRESENT: indwelling catheter Musculoskeletal exam: PRESENT: normal inspection Neurological exam: PRESENT: alert, awake Psychiatric exam: PRESENT: normal mood Skin exam: PRESENT: dry, warm Results Laboratory Results: 12/09/16 03:59 12/09/16 03:59 12/09/16 12/09/16 12/09/16 03:59 03:59 05:45 WBC 10.8 H RBC 5.05 Hgb 14.0 Hct 43.2 MCV 86 MCH 27.7 MCHC 32.4 RDW 15.5 H Plt Count 156 Seg Neutrophils % 90.2 H Lymphocytes % 5.1 L Monocytes % 4.4 Eosinophils % 0.0 Basophils % 0.3 Absolute Neutrophils 9.8 H Absolute Lymphocytes 0.6 Absolute Monocytes 0.5 Absolute Eosinophils 0.0 Absolute Basophils 0.0 Carbonic Acid 1.10 HCO3/H2CO3 Ratio 21:1 ABG pH 7.43 ABG pCO2 36.7 ABG pO2 98.5 ABG HCO3 23.8 ABG O2 Saturation 97.7 ABG Base Excess -0.2 FiO2 30% Sodium 143.8 Potassium 3.7 Chloride 109 H Carbon Dioxide 24 Anion Gap 11 BUN 15 Creatinine 0.79 Est GFR ( Amer) > 60 Est GFR (Non-Af Amer) > 60 Glucose 226 H Calcium 10.3 H Phosphorus 3.3 Magnesium 2.0 Total Bilirubin 0.5 AST 25 ALT 24 Alkaline Phosphatase 69 Total Protein 7.1 Albumin 3.7 12/07/16 12/07/16 12/08/16 18:30 18:30 00:15 Creatine Kinase 33 32 CK-MB (CK-2) 0.48 Troponin I 0.050 12/08/16 12/08/16 12/08/16 00:15 06:30 06:30 Creatine Kinase 34 CK-MB (CK-2) 0.43 0.50 Troponin I 0.045 0.053 Impressions: KUB X-Ray 12/07/16 14:17 IMPRESSION: NG tube placement as described. Chest X-Ray 12/09/16 06:00 IMPRESSION: No significant interval change. Lines and tubes. Assessment & Plan - Diagnosis (1) Airway compromise Is this a current diagnosis for this admission?: YesPlan: decreased,rr,min vol fio2 suggest successful extubation --->extubate (2) Angioedema Qualifiers: Encounter type: initial encounter Qualified Code(s): T78.3XXA - Angioneurotic edema, initial encounter Is this a current diagnosis for this admission?: YesPlan: improving - Time Critical Time spent with patient: 35 or more minutes - 55 min extubation
--- NOTE | 2016-12-10 12:58 | PDOC PROGRESS REPORT ---
Subjective Progress Note for:: 12/10/16 Subjective:: 24h s/p extubation doing well Physical Exam Vital Signs: Temp Pulse Resp BP Pulse Ox 98.6 F 87 16 164/69 H 97 12/10/16 06:00 12/09/16 20:00 12/10/16 06:00 12/10/16 05:34 12/10/16 06:00 Intake & Output 12/09/16 12/10/16 12/11/16 06:59 06:59 06:59 Intake Total 3300 1450 Output Total 1264 3925 Balance 2033 -2475 Weight 83.1 kg 80.8 kg Results Laboratory Results: 12/10/16 04:35 12/10/16 04:35 12/10/16 12/10/16 12/10/16 04:35 04:35 04:35 WBC 11.0 H RBC 5.01 Hgb 13.7 Hct 42.4 MCV 85 MCH 27.3 MCHC 32.3 RDW 15.1 H Plt Count 191 Seg Neutrophils % Not Reportable Lymphocytes % Not Reportable Monocytes % Not Reportable Eosinophils % Not Reportable Basophils % Not Reportable Absolute Neutrophils Not Reportable Absolute Lymphocytes Not Reportable Absolute Monocytes Not Reportable Absolute Eosinophils Not Reportable Absolute Basophils Not Reportable Sodium 143.1 Potassium 3.4 L Chloride 104 Carbon Dioxide 27 Anion Gap 12 BUN 20 Creatinine 0.81 Est GFR ( Amer) > 60 Est GFR (Non-Af Amer) > 60 Glucose 190 H Calcium 10.2 TSH 0.17 L Free T4 1.15 Free T3 pg/mL 2.78 12/07/16 12/07/16 12/08/16 18:30 18:30 00:15 Creatine Kinase 33 32 CK-MB (CK-2) 0.48 Troponin I 0.050 12/08/16 12/08/16 12/08/16 00:15 06:30 06:30 Creatine Kinase 34 CK-MB (CK-2) 0.43 0.50 Troponin I 0.045 0.053 12/09/16 12/09/16 12/09/16 12:29 12:29 17:20 Creatine Kinase 58 56 CK-MB (CK-2) 0.53 Troponin I 0.074 12/09/16 12/09/16 12/09/16 17:20 23:28 23:28 Creatine Kinase 47 CK-MB (CK-2) 0.43 0.95 Troponin I 0.079 0.086 12/10/16 04:35 Creatine Kinase CK-MB (CK-2) Troponin I 0.098 Impressions: KUB X-Ray 12/07/16 14:17 IMPRESSION: NG tube placement as described. Chest X-Ray 12/09/16 06:00 IMPRESSION: No significant interval change. Lines and tubes. Assessment & Plan - Diagnosis (1) Airway compromise Is this a current diagnosis for this admission?: YesPlan: stable (2) Angioedema Qualifiers: Encounter type: initial encounter Qualified Code(s): T78.3XXA - Angioneurotic edema, initial encounter Is this a current diagnosis for this admission?: YesPlan: continues to improve - Time Critical Time spent with patient: 15-24 minutes
[2016-12-10] MEDS: HYDRALAZINE HCL 25 MG TABLET PO SCH ×2 (15:42→21:53)
[2016-12-10] MEDS: HYDRALAZINE HCL INJ/PF 20 MG/1 ML SDV IV PRN (18:56)
[2016-12-11] MEDS: HYDRALAZINE HCL 25 MG TABLET PO SCH (05:49)
[2016-12-11 06:05] LABS: ABSOLUTE LYMPHOCYTES (AUTO) 0.6 10^3/uL (0.5-4.7); ABSOLUTE MONOCYTES (AUTO) 0.8 10^3/uL (0.1-1.4); ABSOLUTE NEUT (AUTO) 8.2 10^3/uL (1.7-8.2); ANION GAP 10 (5-19); BASOPHILS % (AUTO) 0.3 % (0-2); BLOOD UREA NITROGEN 26 mg/dL (7-20); CARBON DIOXIDE 26 mmol/L (22-30); CHLORIDE 105 mmol/L (98-107); CREATININE RESULT 0.86 mg/dL (0.52-1.25); GLUCOSE 164 mg/dL (75-110); HEMATOCRIT 44.2 % (36.0-47.0); HEMOGLOBIN 14.5 g/dL (12.0-15.5); HGB HCT DIFFERENCE -0.7; LYMPHOCYTES % (AUTO) 6.5 % (13-45); MEAN CORPUSCULAR HEMOGLOBIN 27.8 pg (27.0-33.4); MEAN CORPUSCULAR HGB CONC 32.8 g/dL (32.0-36.0); MEAN CORPUSCULAR VOLUME 85 fl (80-97); MONOCYTES % (AUTO) 8.5 % (3-13); POTASSIUM 3.7 mmol/L (3.6-5.0); RED BLOOD COUNT 5.23 10^6/uL (3.72-5.28); RED CELL DISTRIBUTION WIDTH 14.6 % (11.5-14.0); SEGMENTED NEUTROPHILS % (AUTO) 84.7 % (42-78); SODIUM 141.3 mmol/L (137-145); WHITE BLOOD COUNT 9.7 10^3/uL (4.0-10.5)
[2016-12-11] MEDS: AMLODIPINE BESYLATE 10 MG TABLET NG SCH (10:07)
[2016-12-11] MEDS: METHYLPREDNISOLONE INJ 40 MG/1 ML SDV IV SCH (10:07)
[2016-12-11] MEDS: DIPHENHYDRAMINE HCL 25 MG CAPSULE PO SCH (10:07)
[2016-12-11] MEDS: FAMOTIDINE 20 MG TABLET PO SCH (10:08)
[2016-12-11] MEDS: METOPROLOL SUCCINATE 50 MG TAB.SR.24H PO SCH (10:08)
[2016-12-11] MEDS: ENOXAPARIN SODIUM INJ 40 MG/0.4 ML DISP.SYRIN SUBCUT SCH (10:08)
[2016-12-11] MEDS: INSULIN REG, HUMAN 100 UNIT/ML 3 ML VIAL (PYX) SUBCUT PRN (12:16)
--- NOTE | 2016-12-11 13:01 | EKG REPORT ---
SEVERITY:- ABNORMAL ECG - SINUS RHYTHM ABNRM R PROG, CONSIDER ASMI OR LEAD PLACEMENT NONSPECIFIC T ABNORMALITIES, LATERAL LEADS : Confirmed by: Leni Ann MD 11-Dec-2016 13:01:20
--- NOTE | 2016-12-11 14:21 | PDOC DISCHARGE SUMMARY ---
General - Admit/Disc Date/PCP Admission Date/Primary Care Provider: 12/07/16 16:38 PRERNA LOERA MD Discharge Date: 12/11/16 - Discharge Diagnosis (1) Airway compromise Is this a current diagnosis for this admission?: YesSummary: All resolved (2) Angioedema Is this a current diagnosis for this admission?: YesSummary: Unclear etiology follow outpatient charge gang weigher currently all resolved (3) Poorly-controlled hypertension Is this a current diagnosis for this admission?: YesSummary: The hydralazine with other medications and discussed with the patient about the low-sodium diet and check her blood pressures daily (4) Diabetes mellitus type 2 in obese Is this a current diagnosis for this admission?: YesSummary: Continues to current medications (5) Hyperlipemia Is this a current diagnosis for this admission?: YesSummary: Stable (6) Major depression Is this a current diagnosis for this admission?: Yes - Additional Information Resuscitation Status: Full Code Discharge Diet: Diabetic Discharge Activity: Activity As Tolerated Home Medications: Amlodipine Besylate 10 mg PO DAILY 12/07/16 Metoprolol Succinate 75 mg PO DAILY 12/07/16 Pioglitazone HCl [Actos] 30 mg PO DAILY 12/08/16 Sertraline HCl [Zoloft] 25 mg PO DAILY 12/08/16 Famotidine [Pepcid 20 mg Tablet] 20 mg PO DAILY #30 tablet 12/11/16 Hydralazine HCl [Apresoline 25 mg Tablet] 25 mg PO Q8 #90 tablet 12/11/16 Levocetirizine Dihydrochloride [Xyzal] 5 mg PO DAILY #30 tablet 12/11/16 History of Present Illness History of Present Illness: YEMI CARLSON is a 71 year old female This 71-year-old female came to the emergency department with a complaint of her tongue and the mouth swelling with her . According to the 30 minutes prior to arrival patient started developing this tongue and the mild swelling and patient had this before due to the lisinopril and that is why they came to the emergency department today. Patient's currently not taking any lisinopril. Patients took the Norvasc 5 mg in the morning. In the emergency department patient had a significant swelling in the mouth and the tongue and patient was unable to speak and the patient have a splitting this secretions and at that time he had physicians consult the ENT and patient underwent operating room and was intubated due to the airway productions and put in the ICU for further evaluation and treatment Patient's currently intubated and under sedation's Patients recently have a nothing new medications but patients recently a more depressed because of her brother and according to the patient is not taking lisinopril since the last incidence several years back Patients did not eat anything unusual and not taking any other usual medications Hospital Course Hospital Course: There is a 71-year-old female present in the emergency department of the swelling in the tongue and the lips with a sudden onset and in the emergency department patient was taken to the OR by ENT and was intubated and transferred to the ICU and Dr. Saldana was consulted. Patient otherwise doing well patient was put on IV Solu-Medrol and Benadryl and the patient's pretty much all swelling to resolve. Patient was extubated and transferred to the telemetry bed patient's p.o. intake is good Patient also noticed the EKG changes and the Dr. Ann was consulted and cardiac perez patient is clear and echocardiogram was done and suggest a follow outpatients with a stress test. Patient's denied any chest pain denied any shortness of the breath patient is otherwise walk in the hallway without any problem And patients denied any other symptoms. Restarted on home medications discussed with the Raheem about the patient's current conditions Follow outpatient and further allergy evaluations Physical Exam Vital Signs: Temp Pulse Resp BP Pulse Ox 99.0 F 53 L 20 159/67 H 96 12/11/16 10:07 12/11/16 07:00 12/11/16 12:00 12/11/16 10:07 12/11/16 05:37 Intake & Output 12/10/16 12/11/16 12/12/16 06:59 06:59 06:59 Intake Total 1450 1740 210 Output Total 3925 1925 125 Balance -2475 -185 85 Weight 80.8 kg 81.4 kg General appearance: PRESENT: no acute distress, well-developed, well-nourished Head exam: PRESENT: atraumatic, normocephalic Eye exam: PRESENT: conjunctiva pink, EOMI, PERRLA. ABSENT: scleral icterus Ear exam: PRESENT: normal external ear exam Mouth exam: PRESENT: moist, tongue midline Neck exam: PRESENT: full ROM. ABSENT: carotid bruit, JVD, lymphadenopathy, thyromegaly Respiratory exam: PRESENT: clear to auscultation shereen Cardiovascular exam: PRESENT: RRR, +S1, +S2. ABSENT: diastolic murmur, rubs, systolic murmur Pulses: PRESENT: normal dorsalis pedis pul, +2 pedal pulses bilateral Vascular exam: PRESENT: normal capillary refill GI/Abdominal exam: PRESENT: normal bowel sounds, soft. ABSENT: distended, guarding, mass, organolmegaly, rebound, tenderness Rectal exam: PRESENT: deferred Musculoskeletal exam: PRESENT: ambulatory Neurological exam: PRESENT: alert, awake, oriented to person, oriented to place , oriented to time, oriented to situation, CN II-XII grossly intact. ABSENT: motor sensory deficit Psychiatric exam: PRESENT: appropriate affect, normal mood. ABSENT: homicidal ideation, suicidal ideation Skin exam: PRESENT: dry, intact, warm. ABSENT: cyanosis, rash Results Laboratory Results: 12/11/16 05:40 12/11/16 05:40 12/11/16 12/11/16 05:40 05:40 WBC 9.7 RBC 5.23 Hgb 14.5 Hct 44.2 MCV 85 MCH 27.8 MCHC 32.8 RDW 14.6 H Plt Count 177 Seg Neutrophils % 84.7 H Lymphocytes % 6.5 L Monocytes % 8.5 Eosinophils % 0.0 Basophils % 0.3 Absolute Neutrophils 8.2 Absolute Lymphocytes 0.6 Absolute Monocytes 0.8 Absolute Eosinophils 0.0 Absolute Basophils 0.0 Sodium 141.3 Potassium 3.7 Chloride 105 Carbon Dioxide 26 Anion Gap 10 BUN 26 H Creatinine 0.86 Est GFR ( Amer) > 60 Est GFR (Non-Af Amer) > 60 Glucose 164 H Calcium 10.0 12/07/16 12/07/16 12/08/16 18:30 18:30 00:15 Creatine Kinase 33 32 CK-MB (CK-2) 0.48 Troponin I 0.050 12/08/16 12/08/16 12/08/16 00:15 06:30 06:30 Creatine Kinase 34 CK-MB (CK-2) 0.43 0.50 Troponin I 0.045 0.053 12/09/16 12/09/16 12/09/16 12:29 12:29 17:20 Creatine Kinase 58 56 CK-MB (CK-2) 0.53 Troponin I 0.074 12/09/16 12/09/16 12/09/16 17:20 23:28 23:28 Creatine Kinase 47 CK-MB (CK-2) 0.43 0.95 Troponin I 0.079 0.086 12/10/16 04:35 Creatine Kinase CK-MB (CK-2) Troponin I 0.098 Impressions: KUB X-Ray 12/07/16 14:17 IMPRESSION: NG tube placement as described. Chest X-Ray 12/09/16 06:00 IMPRESSION: No significant interval change. Lines and tubes. Plan Time Spent: Greater than 30 Minutes - Discussed with the about all the patient's current conditions and continues to monitor the patient's
[2016-12-11 14:35] VITALS: BP 162/68
[2016-12-12 06:37] LABS: E001-IGE CAT DANDER 8.67 kU/L (Class IV); E005-IGE DOG DANDER 1.26 kU/L (Class II); F026-IGE PORK <0.10 kU/L (Class 0); F027-IGE BEEF <0.10 kU/L (Class 0); G002-IGE BERMUDA GRASS <0.10 kU/L (Class 0); G008-IGE BLUEGRASS KENTUCKY <0.10 kU/L (Class 0); M001-IGE PENICILLIUM CHRYSOGEN <0.10 kU/L (Class 0); M002-IGE CLADOSPORIUM HERBARUM <0.10 kU/L (Class 0); M003-IGE ASPERGILLUS FUMIGATUS <0.10 kU/L (Class 0); M004-IGE MUCOR RACEMOSUS <0.10 kU/L (Class 0); M005-IGE CANDIDA ALBICANS <0.10 kU/L (Class 0); M006-IGE ALTERNARIA ALTERNATA <0.10 kU/L (Class 0); M008-IGE SETOMELANOMMA ROSTRAT <0.10 kU/L (Class 0); M009-IGE FUSARIUM PROLIFERATUM <0.10 kU/L (Class 0); M012-IGE AUREOBASIDI PULLULANS <0.10 kU/L (Class 0); M013-IGE PHOMA BETAE <0.10 kU/L (Class 0); M014-IGE EPICOCCUM PURPURASCEN <0.10 kU/L (Class 0); T007-IGE OAK WHITE <0.10 kU/L (Class 0); T008-IGE ELM AMERICAN (WHITE <0.10 kU/L (Class 0); W001-IGE RAGWEED SHORT/COMMO <0.10 kU/L (Class 0); W009-IGE PLANTAIN ENGLISH <0.10 kU/L (Class 0)
--- NOTE | 2016-12-12 12:49 | PDOC PROGRESS REPORT ---
Subjective Progress Note for:: 12/11/16 Subjective:: Doing much better Physical Exam Vital Signs: Temp Pulse Resp BP Pulse Ox 98.4 F 54 L 19 163/70 H 96 12/11/16 06:00 12/11/16 01:33 12/11/16 06:00 12/11/16 04:11 12/11/16 05:37 Intake & Output 12/10/16 12/11/16 12/12/16 06:59 06:59 06:59 Intake Total 1450 1740 Output Total 3925 1925 Balance -2475 -185 Weight 80.8 kg 81.4 kg General appearance: PRESENT: no acute distress, cooperative, disheveled, obese, well-developed Head exam: PRESENT: atraumatic, normocephalic Eye exam: PRESENT: conjunctiva pale, EOMI Mouth exam: PRESENT: moist, neck supple, tongue midline Neck exam: ABSENT: carotid bruit, JVD, lymphadenopathy, thyromegaly Respiratory exam: PRESENT: decreased breath sounds, prolonged expiratory phas, symmetrical, unlabored Cardiovascular exam: PRESENT: RRR, +S1, +S2 Pulses: PRESENT: normal radial pulses GI/Abdominal exam: PRESENT: normal bowel sounds, soft. ABSENT: distended, guarding, mass, organolmegaly, rebound, tenderness Rectal exam: PRESENT: deferred Musculoskeletal exam: PRESENT: normal inspection Neurological exam: PRESENT: alert, awake Psychiatric exam: PRESENT: normal mood Skin exam: PRESENT: dry, warm Results Laboratory Results: 12/11/16 05:40 12/11/16 05:40 12/11/16 12/11/16 05:40 05:40 WBC 9.7 RBC 5.23 Hgb 14.5 Hct 44.2 MCV 85 MCH 27.8 MCHC 32.8 RDW 14.6 H Plt Count 177 Seg Neutrophils % 84.7 H Lymphocytes % 6.5 L Monocytes % 8.5 Eosinophils % 0.0 Basophils % 0.3 Absolute Neutrophils 8.2 Absolute Lymphocytes 0.6 Absolute Monocytes 0.8 Absolute Eosinophils 0.0 Absolute Basophils 0.0 Sodium 141.3 Potassium 3.7 Chloride 105 Carbon Dioxide 26 Anion Gap 10 BUN 26 H Creatinine 0.86 Est GFR ( Amer) > 60 Est GFR (Non-Af Amer) > 60 Glucose 164 H Calcium 10.0 12/07/16 12/07/16 12/08/16 18:30 18:30 00:15 Creatine Kinase 33 32 CK-MB (CK-2) 0.48 Troponin I 0.050 12/08/16 12/08/16 12/08/16 00:15 06:30 06:30 Creatine Kinase 34 CK-MB (CK-2) 0.43 0.50 Troponin I 0.045 0.053 12/09/16 12/09/16 12/09/16 12:29 12:29 17:20 Creatine Kinase 58 56 CK-MB (CK-2) 0.53 Troponin I 0.074 12/09/16 12/09/16 12/09/16 17:20 23:28 23:28 Creatine Kinase 47 CK-MB (CK-2) 0.43 0.95 Troponin I 0.079 0.086 12/10/16 04:35 Creatine Kinase CK-MB (CK-2) Troponin I 0.098 Impressions: KUB X-Ray 12/07/16 14:17 IMPRESSION: NG tube placement as described. Chest X-Ray 12/09/16 06:00 IMPRESSION: No significant interval change. Lines and tubes. Assessment & Plan - Diagnosis (1) Airway compromise Is this a current diagnosis for this admission?: YesPlan: resolved (2) Angioedema Qualifiers: Encounter type: initial encounter Qualified Code(s): T78.3XXA - Angioneurotic edema, initial encounter Is this a current diagnosis for this admission?: YesPlan: continues to improve
[2016-12-12 13:35] LABS: F052-IGE CHOCOLATE/COCOA <0.10 kU/L (Class 0); M010-IGE STEMPHYLIUM HERBARUM <0.10 kU/L (Class 0)
[2016-12-12 13:36] LABS: E072-IGE MOUSE URINE <0.10 kU/L (Class 0)
[2016-12-12 17:37] LABS: THYROID PEROXIDASE (TPO) AB <6 IU/mL (0-34)
[2016-12-13 07:30] LABS: THYROGLOBULIN AB <1.0 IU/mL (0.0-0.9)
== END 2016-12-11 15:00 | disposition home or self-care (01) | DRG 916 ==
LOC: OROUT 11:37 → ICU 13:57 → UNDOADMIN 15:37 → ICU 15:37 → OROUT 15:42 → ICU 16:38
PROVIDERS: ADMIT Family Medicine; ATTEND Family Medicine
PROC: 0BH17EZ Insertion of Endotracheal Airway into Trachea, Via Natural or Artificial Opening (ICD-10-PCS; principal; 2016-12-07 13:00)
DX: T78.3XXA Angioneurotic edema, initial encounter (principal); I10 Essential (primary) hypertension; E11.9 Type 2 diabetes mellitus without complications; E78.5 Hyperlipidemia, unspecified; F32.9 Major depressive disorder, single episode, unspecified; E66.9 Obesity, unspecified; Z68.32 Body mass index [BMI] 32.0-32.9, adult; Z79.899 Other long term (current) drug therapy; Z90.710 Acquired absence of both cervix and uterus; Z88.8 Allergy status to other drugs, medicaments and biological substances
CPT/HCPCS: 320; 36415; 71010; 74000; 80048; 80053; 81001; 82550; 82553; 82803; 82962; 83735; 84100; 84439; 84443; 84481; 84484; 85025; 85610; 85730; 86003; 86160; 86161; 86376; 93005; 93010; 93306; 94002; 94003; 94799; 96374; 99291; J0360; J1100; J1200; J1650; J1815; J1940; J2704; J2920; J3490; J7030; S0028

== ENCOUNTER 2017-01-03 11:42 | Emergency (ER) | payer MEDICARE ==
[2017-01-03] MEDS ORDERED: DIPHENHYDRAMINE HCL 50 MG CAPSULE PO ONE (12:17)
[2017-01-03] MEDS ORDERED: PREDNISONE 20 MG TABLET PO ONE (12:17)
--- NOTE | 2017-01-03 12:22 | ER Document Report ---
ED Medical Screen (RME) - General Chief Complaint: Difficulty Swallowing Stated Complaint: THROAT SWELLING Time Seen by Provider: 01/03/17 12:17 Mode of Arrival: Ambulatory Information source: Patient, Relative TRAVEL OUTSIDE OF THE [place] IN LAST 30 DAYS: No - HPI Onset: This morning Onset/Duration: Gradual, Better Severity: None Associated Symptoms: None Exacerbated by: Denies Relieved by: Denies Notes: 01/03/17 12:19 Patient is a 71-year-old female who was admitted to this facility back in November for KEVIN inhibitor induced angioedema which did require endotracheal intubation. It resolved spontaneously after IV Benadryl and steroids. Ultimately she was discharged home on other blood pressure medications. She has been doing well until this morning when she noticed some mild swelling to her lower lip. She denies any difficulty swallowing or difficulty breathing. At the time she arrived to the emergency department, the swelling had resolved and according to her , her lip appears at baseline. This is the first episode of lip swelling since her hospital discharge. - Related Data Allergies/Adverse Reactions: lisinopril Allergy (Verified 01/03/17 11:59) angioedema, tongue swollen Past Medical History - General Information source: Patient - Social History Cigarette use (# per day): No Chew tobacco use (# tins/day): No - Past Medical History Cardiac Medical History: Reports: Hx Hypertension Denies: Hx Coronary Artery Disease, Hx Heart Attack Pulmonary Medical History: Denies: Hx Asthma, Hx Bronchitis, Hx COPD, Hx Pneumonia Neurological Medical History: Denies: Hx Cerebrovascular Accident, Hx Seizures Endocrine Medical History: Reports: Hx Diabetes Mellitus Type 2 Renal/ Medical History: Denies: Hx Peritoneal Dialysis Musculoskeltal Medical History: Denies Hx Arthritis Psychiatric Medical History: Denies: Hx Depression Past Surgical History: Reports: Hx Appendectomy, Hx Hysterectomy, Hx Neurologic Surgery - 2000 coiling, Hx Tubal Ligation. Denies: Hx Pacemaker - Immunizations Hx Diphtheria, Pertussis, Tetanus Vaccination: Yes Review of Systems - Review of Systems EENT: Mouth swelling Cardiovascular: No symptoms reported Respiratory: No symptoms reported -: Yes All other systems reviewed and negative Physical Exam - Vital signs Vitals: Temp Pulse Resp BP Pulse Ox 98.8 F 66 16 168/77 H 98 01/03/17 11:51 01/03/17 11:51 01/03/17 11:51 01/03/17 11:51 01/03/17 11:51 Interpretation: Normal - General General appearance: Appears well, Alert - HEENT Head: Normocephalic Mouth/Lips: Normal, Other - Posterior oropharynx is widely patent. No: Angioedema Pharynx: Normal Neck: Normal - Respiratory Respiratory status: No respiratory distress Chest status: Nontender Breath sounds: Normal Chest palpation: Normal - Cardiovascular Rhythm: Regular Heart sounds: Normal auscultation Murmur: No - Abdominal Inspection: Normal Distension: No distension Bowel sounds: Normal Tenderness: Nontender Organomegaly: No organomegaly - Extremities General upper extremity: Normal inspection, Nontender, Normal color, Normal ROM , Normal temperature General lower extremity: Normal inspection, Nontender, Normal color, Normal ROM , Normal temperature, Normal weight bearing. No: Kelsea's sign - Neurological Neuro grossly intact: Yes Cognition: Normal Orientation: AAOx4 [place] Coma Scale Eye Opening: Spontaneous Linda Coma Scale Verbal: Oriented Linda Coma Scale Motor: Obeys Commands [place] Coma Scale Total: 15 Speech: Normal Motor strength normal: LUE, RUE, LLE, RLE Sensory: Normal Course - Re-evaluation Re-evalutation: 01/03/17 12:21 There is no evidence of acute angioedema at this time. Her lip swelling symptoms have apparently resolved. Nonetheless, will cover with several days of Benadryl and steroids given her recent history. - Vital Signs Vital signs: Temp Pulse Resp BP Pulse Ox 98.8 F 66 16 168/77 H 98 01/03/17 11:51 01/03/17 11:51 01/03/17 11:51 01/03/17 11:51 01/03/17 11:51 Doctor's Discharge - Discharge Clinical Impression: Angioedema Condition: Good Disposition: HOME, SELF-CARE Instructions: Angioedema ([facility]) Additional Instructions: Follow-up with your primary care doctor the next 24-48 hours. Return to the emergency department if her symptoms worsen or for any other problems. You should use Benadryl 50 mg every 6 hours for the next 24 hours. Prescriptions: Prednisone [Deltasone 20 mg Tablet] 2 tab PO DAILY 3 Days
[2017-01-03 13:22] VITALS: BP 152/83
== END 2017-01-03 12:27 | disposition home or self-care (01) ==
LOC: ER 11:42
DX: T78.3XXA Angioneurotic edema, initial encounter (principal); R13.10 Dysphagia, unspecified; I10 Essential (primary) hypertension; E11.9 Type 2 diabetes mellitus without complications; Z90.710 Acquired absence of both cervix and uterus
CPT/HCPCS: 99284; A9270 ×2; J7512

== ENCOUNTER 2017-05-21 11:42 | Emergency (ER) | payer MEDICARE ==
[2017-05-21 11:53] VITALS: BP 156/77
--- NOTE | 2017-05-21 12:27 | ER Document Report ---
ED General - General Chief Complaint: Medication Refill Stated Complaint: SLEEP ISSUES Notes: The patient is a 72-year-old female, past medical history insomnia, presents after running out of her Ambien for 2 days and not being able to sleep. She has a prescription filled by Dr. Loera waiting for at the pharmacy, but is unable to be filled until tomorrow. She tried Benadryl and melatonin without much relief of her symptoms. She has no other complaints at this time. TRAVEL OUTSIDE OF THE [place] IN LAST 30 DAYS: No - Related Data Allergies/Adverse Reactions: lisinopril Allergy (Verified 05/21/17 11:53) angioedema, tongue swollen Past Medical History - General Information source: Patient - Social History Smoking Status: Never Smoker Family History: Reviewed & Not Pertinent - Past Medical History Cardiac Medical History: Reports: Hx Hypertension Denies: Hx Coronary Artery Disease, Hx Heart Attack Pulmonary Medical History: Denies: Hx Asthma, Hx Bronchitis, Hx COPD, Hx Pneumonia Neurological Medical History: Denies: Hx Cerebrovascular Accident, Hx Seizures Endocrine Medical History: Reports: Hx Diabetes Mellitus Type 2 Renal/ Medical History: Denies: Hx Peritoneal Dialysis Musculoskeltal Medical History: Denies Hx Arthritis Psychiatric Medical History: Denies: Hx Depression Past Surgical History: Reports: Hx Appendectomy, Hx Hysterectomy, Hx Neurologic Surgery - 2000 coiling, Hx Tubal Ligation. Denies: Hx Pacemaker - Immunizations Hx Diphtheria, Pertussis, Tetanus Vaccination: Yes Review of Systems - Review of Systems Notes: REVIEW OF SYSTEMS: CONSTITUTIONAL: -fevers, -chills EENT: -eye pain, -difficulty swallowing, -nasal congestion CARDIOVASCULAR:-chest pain, -syncope. RESPIRATORY: -cough, -SOB GASTROINTESTINAL: -abdominal pain, - nausea, -vomiting, -diarrhea GENITOURINARY: -dysuria, -hematuria MUSCULOSKELETAL: -back pain, -neck pain SKIN: -rash or skin lesions. HEMATOLOGIC: -easy bruising or bleeding. LYMPHATIC: -swollen, enlarged glands. NEUROLOGICAL: -altered mental status or loss of consciousness, -headache, - neurologic symptoms PSYCHIATRIC: -anxiety, -depression, +insomnia ALL OTHER SYSTEMS REVIEWED AND NEGATIVE. Physical Exam - Vital signs Vitals: Temp Pulse Resp BP Pulse Ox 99.2 F 66 18 156/77 H 98 05/21/17 11:50 05/21/17 11:50 05/21/17 11:50 05/21/17 11:50 05/21/17 11:50 - Notes Notes: PHYSICAL EXAMINATION: GENERAL: Well-appearing, well-nourished and in no acute distress. HEAD: Atraumatic, normocephalic. EYES: Pupils equal round and reactive to light, extraocular movements intact, sclera anicteric, conjunctiva are normal. ENT: nares patent, oropharynx clear without exudates. Moist mucous membranes. NECK: Normal range of motion, supple without lymphadenopathy LUNGS: Breath sounds clear to auscultation bilaterally and equal. No wheezes rales or rhonchi. HEART: Regular rate and rhythm without murmurs ABDOMEN: Soft, nontender, normoactive bowel sounds. No guarding, no rebound. No masses appreciated. EXTREMITIES: Normal range of motion, no pitting or edema. No cyanosis. NEUROLOGICAL: Cranial nerves grossly intact. Normal speech, normal gait. Normal sensory and motor exams. PSYCH: Normal mood, normal affect. SKIN: Warm, Dry, normal turgor, no rashes or lesions noted. Course - Re-evaluation Re-evalutation: Explained to patient that we are unable to provide refills of her chronic sleeping medications. 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 Instructed her about sleep hygiene and to continue melatonin and Benadryl. Patient presents with multiple vague complaints that did not appear to be concerning for any acute life-threatening pathology. Vitals are within normal limits at triage and at time of discharge. Physical examination is unremarkable. Patient has tolerated oral intake without difficulty. Patient was not noted to be in distress at any point during their ER visit. At this time, based on the reassuring evaluation, I do not suspect an acute VT, pulmonary embolus, aortic dissection, acute intra-abdominal pathology, stroke, or sepsis.Will discharge with return precautions and follow-up recommendations. Verbal discharge instructions given a the bedside and opportunity for questions given. Medication warnings reviewed. Patient is in agreement with this plan and has verbalized understanding of return precautions and the need for primary care follow-up in the next 24-72 hours. - Vital Signs Vital signs: Temp Pulse Resp BP Pulse Ox 99.2 F 66 18 156/77 H 98 05/21/17 11:50 05/21/17 11:50 05/21/17 11:50 05/21/17 11:50 05/21/17 11:50 Discharge - Discharge Clinical Impression: Encounter for medication refill Condition: Good Disposition: HOME, SELF-CARE Additional Instructions: You must only obtain Ambien from one prescriber. The ER cannot prescribe Ambien. Referrals: PRERNA LOERA MD [ACTIVE STAFF] - Follow up as needed
== END 2017-05-21 12:35 | disposition home or self-care (01) ==
LOC: ER 11:42
DX: Z76.0 Encounter for issue of repeat prescription (principal); G47.00 Insomnia, unspecified
CPT/HCPCS: 99282

== ENCOUNTER 2017-05-25 16:35 | Emergency (ER) | payer MEDICARE ==
--- NOTE | 2017-05-25 17:01 | ER Document Report ---
ED Medical Screen (RME) - General Chief Complaint: Altered Mental Status Stated Complaint: ALTERED MENTAL STATUS Time Seen by Provider: 05/25/17 16:51 Mode of Arrival: Wheelchair Information source: Relative Cannot obtain history due to: Altered mental status TRAVEL OUTSIDE OF THE [place] IN LAST 30 DAYS: No - HPI Onset: Other - 2-3 DAYS Onset/Duration: Gradual Quality of pain: No pain Associated Symptoms: Other - CONFUSION, LANGUAGE DYSFUNCTION, INSOMNIA Exacerbated by: Denies Relieved by: Denies Similar symptoms previously: No Recently seen / treated by doctor: Yes - RADU TOURE, SENT TO E.D. FOR EVAL. - Related Data Smoking: Non-smoker Frequency of alcohol use: None Drug Abuse: None Allergies/Adverse Reactions: lisinopril Allergy (Verified 05/21/17 11:53) angioedema, tongue swollen Past Medical History - General Information source: Relative Cannot obtain history due to: Altered mental status - Social History Cigarette use (# per day): No Chew tobacco use (# tins/day): No Frequency of alcohol use: None Drug Abuse: None Lives with: Family - Past Medical History Cardiac Medical History: Reports: Hx Hypertension Denies: Hx Coronary Artery Disease, Hx Heart Attack Pulmonary Medical History: Denies: Hx Asthma, Hx Bronchitis, Hx COPD, Hx Pneumonia Neurological Medical History: Denies: Hx Cerebrovascular Accident, Hx Seizures Endocrine Medical History: Reports: Hx Diabetes Mellitus Type 2 Renal/ Medical History: Denies: Hx Peritoneal Dialysis Musculoskeltal Medical History: Denies Hx Arthritis Psychiatric Medical History: Denies: Hx Depression Past Surgical History: Reports: Hx Appendectomy, Hx Hysterectomy, Hx Neurologic Surgery - 2000 coiling, Hx Tubal Ligation. Denies: Hx Pacemaker - Immunizations Hx Diphtheria, Pertussis, Tetanus Vaccination: Yes Review of Systems - Review of Systems Constitutional: No symptoms reported. denies: Chills, Diaphoresis, Fever Cardiovascular: No symptoms reported Respiratory: No symptoms reported. denies: Cough Gastrointestinal: No symptoms reported. denies: Nausea, Vomiting Neurological/Psychological: See HPI Physical Exam - Vital signs Vitals: Temp Pulse Resp BP Pulse Ox 98.8 F 94 20 174/71 H 96 05/25/17 16:45 05/25/17 16:45 05/25/17 16:45 05/25/17 16:45 05/25/17 16:45 Interpretation: Hypertensive. No: Tachycardic, Tachypneic - General General appearance: Appears well, Alert In distress: None - HEENT Head: Normocephalic Eyes: Normal Conjunctiva: Normal Ears: Normal Nasal: Normal Neck: Normal, Supple - Respiratory Respiratory status: No respiratory distress - Cardiovascular Rhythm: Regular - Extremities General upper extremity: Normal inspection General lower extremity: Normal inspection. No: Edema - Neurological Neuro grossly intact: No - NOT CONVERSANT (NORMALLY IS FLUENT) - Skin Skin Temperature: Warm Skin Moisture: Dry Skin Color: Normal Skin Turgor: Elastic Course - Vital Signs Vital signs: Temp Pulse Resp BP Pulse Ox 98.8 F 94 20 174/71 H 96 05/25/17 16:45 05/25/17 16:45 05/25/17 16:45 05/25/17 16:45 05/25/17 16:45
--- NOTE | 2017-05-25 17:36 | RADIOLOGY REPORT (SQ) ---
EXAM DESCRIPTION: CT HEAD WITHOUT COMPLETED DATE/TIME: 05/25/2017 5:28 pm REASON FOR STUDY: CONFUSION, FIRST-TIME SEIZURE COMPARISON: 10/29/2015 TECHNIQUE: Axial images acquired through the brain without intravenous contrast. Images reviewed wi th bone, brain and subdural windows. Images stored on PACS. All CT scanners at this facility use dose modulation, iterative reconstruction, and/or weight based d osing when appropriate to reduce radiation dose to as low as reasonably achievable (ALARA). [facility]: Dose Right [facility]: CareDose [facility]: Dose Right [facility]: Teradose 4D [facility]: [facility]ale RADIATION DOSE: mGy. LIMITATIONS: None. FINDINGS: VENTRICLES: Prominent. CEREBRUM: No masses. No hemorrhage. No midline shift. Areas of low density in the white matter mos t likely due to chronic micro-vascular ischemic change. No evidence for acute infarction. CEREBELLUM: No masses. No hemorrhage. No alteration of density. No evidence for acute infarction. EXTRAAXIAL SPACES: Mild age-related involutional change. No fluid collections. No masses. ORBITS AND GLOBE: No intra- or extraconal masses. Normal contour of globe without masses. CALVARIUM: No fracture. PARANASAL SINUSES: No fluid or mucosal thickening. SOFT TISSUES: No mass or hematoma. OTHER: No other significant finding. IMPRESSION: MILD CHRONIC CHANGES OF ATROPHY AND MICROVASCULAR ISCHEMIA. NO ACUTE PROCESS. EVIDENCE OF ACUTE STROKE: NO. TECHNICAL DOCUMENTATION: JOB ID: [id number] Quality ID # [id number]: Final reports with documentation of one or more dose reduction techniques (e.g., Au tomated exposure control, adjustment of the mA and/or kV according to patient size, use of iterative reconstruction technique) 2010 [employer]- All Rights Reserved
--- NOTE | 2017-05-25 17:44 | RADIOLOGY REPORT (SQ) ---
EXAM DESCRIPTION: CHEST SINGLE VIEW COMPLETED DATE/TIME: 05/25/2017 5:36 pm REASON FOR STUDY: CONFUSION, FIRST-TIME SEIZURE COMPARISON: 12/09/2016 EXAM PARAMETERS: NUMBER OF VIEWS: One view. TECHNIQUE: Single frontal radiographic view of the chest acquired. RADIATION DOSE: NA LIMITATIONS: None. FINDINGS: LUNGS AND PLEURA: No opacities, masses or pneumothorax. No pleural effusion. MEDIASTINUM AND HILAR STRUCTURES: No masses. Contour normal. HEART AND VASCULAR STRUCTURES: Heart normal in size. Normal vasculature. BONES: No acute findings. HARDWARE: None in the chest. OTHER: No other significant finding. IMPRESSION: NO ACUTE RADIOGRAPHIC FINDING IN THE CHEST. TECHNICAL DOCUMENTATION: JOB ID: [id number] [employer]- All Rights Reserved
[2017-05-25 18:44] LABS: ABSOLUTE LYMPHOCYTES (AUTO) 0.8 10^3/uL (0.5-4.7); ABSOLUTE MONOCYTES (AUTO) 0.6 10^3/uL (0.1-1.4); ABSOLUTE NEUT (AUTO) 5.4 10^3/uL (1.7-8.2); BASOPHILS % (AUTO) 0.5 % (0-2); HEMATOCRIT 41.5 % (36.0-47.0); HEMOGLOBIN 13.9 g/dL (12.0-15.5); HGB HCT DIFFERENCE 0.2; LYMPHOCYTES % (AUTO) 11.3 % (13-45); MEAN CORPUSCULAR HGB CONC 33.6 g/dL (32.0-36.0); MEAN CORPUSCULAR VOLUME 83 fl (80-97); MONOCYTES % (AUTO) 9.2 % (3-13); RED BLOOD COUNT 4.98 10^6/uL (3.72-5.28); RED CELL DISTRIBUTION WIDTH 14.9 % (11.5-14.0); WHITE BLOOD COUNT 6.8 10^3/uL (4.0-10.5)
--- NOTE | 2017-05-25 18:55 | EKG REPORT ---
SEVERITY:- ABNORMAL ECG - SINUS RHYTHM PROBABLE LEFT ATRIAL ABNORMALITY LVH WITH SECONDARY REPOLARIZATION ABNORMALITY : Confirmed by: Rupert Herndon MD 25-May-2017 18:54:29
[2017-05-25 19:01] LABS: ALANINE AMINOTRANSFERASE 35 U/L (9-52); ALBUMIN 4.5 g/dL (3.5-5.0); ALKALINE PHOSPHATASE 78 U/L (38-126); ANION GAP 14 (5-19); ASPARTATE AMINO TRANSFERASE 31 U/L (14-36); BILIRUBIN,DIRECT 0.4 mg/dL (0.0-0.4); BLOOD UREA NITROGEN 16 mg/dL (7-20); CALCIUM 10.6 mg/dL (8.4-10.2); CARBON DIOXIDE 27 mmol/L (22-30); CHLORIDE 101 mmol/L (98-107); CREATINE KINASE 222 U/L (30-135); CREATININE RESULT 0.94 mg/dL (0.52-1.25); GLUCOSE 178 mg/dL (75-110); POTASSIUM 3.1 mmol/L (3.6-5.0); SODIUM 141.8 mmol/L (137-145); TOTAL PROTEIN 7.5 g/dL (6.3-8.2)
--- NOTE | 2017-05-25 19:12 | ER Document Report ---
ED General - General Chief Complaint: Altered Mental Status Stated Complaint: ALTERED MENTAL STATUS Time Seen by Provider: 05/25/17 16:51 Mode of Arrival: Wheelchair Information source: Patient, Relative Cannot obtain history due to: Altered mental status Notes: 72-year-old female presents with family's concern for confusion over the past 5 days restlessness. Patient denies any fevers or chills denies any nausea vomiting. Denies any pain anywhere TRAVEL OUTSIDE OF THE [place] IN LAST 30 DAYS: No - HPI Onset: Last week Onset/Duration: Persistent Quality of pain: No pain Severity: Mild Pain Level: Denies Associated symptoms: Other Exacerbated by: Denies Relieved by: Denies Similar symptoms previously: No Recently seen / treated by doctor: No - Related Data Allergies/Adverse Reactions: lisinopril Allergy (Verified 05/21/17 11:53) angioedema, tongue swollen Home Medications: Current Home Medications Amlodipine Besylate 10 mg PO DAILY 05/25/17 [History] Aspirin 81 mg PO DAILY 05/25/17 [History] Famotidine 20 mg PO DAILY 05/25/17 [History] Hydralazine HCl 25 mg PO DAILY 05/25/17 [History] Metoprolol Tartrate 25 mg PO DAILY 05/25/17 [History] Pioglitazone HCl 30 mg PO DAILY 05/25/17 [History] Past Medical History - General Information source: Relative - Social History Smoking Status: Never Smoker Cigarette use (# per day): No Chew tobacco use (# tins/day): No Smoking Education Provided: No Frequency of alcohol use: None Drug Abuse: None Lives with: Family Family History: Reviewed & Not Pertinent Patient has suicidal ideation: No Patient has homicidal ideation: No - Past Medical History Cardiac Medical History: Reports: Hx Hypertension Denies: Hx Coronary Artery Disease, Hx Heart Attack Pulmonary Medical History: Denies: Hx Asthma, Hx Bronchitis, Hx COPD, Hx Pneumonia Neurological Medical History: Denies: Hx Cerebrovascular Accident, Hx Seizures Endocrine Medical History: Reports: Hx Diabetes Mellitus Type 2 Renal/ Medical History: Denies: Hx Peritoneal Dialysis Musculoskeltal Medical History: Denies Hx Arthritis Psychiatric Medical History: Denies: Hx Depression Past Surgical History: Reports: Hx Appendectomy, Hx Hysterectomy, Hx Neurologic Surgery - 2000 coiling, Hx Tubal Ligation. Denies: Hx Pacemaker - Immunizations Hx Diphtheria, Pertussis, Tetanus Vaccination: Yes Review of Systems - Review of Systems Notes: REVIEW OF SYSTEMS: CONSTITUTIONAL : Denies fever, chills, or sweats. Denies recent illness. EENT: Denies eye, ear, throat, or mouth pain or symptoms. Denies nasal or sinus congestion or discharge. Denies throat, tongue, or mouth swelling or difficulty swallowing. CARDIOVASCULAR: Denies chest pain. Denies palpitations or racing or irregular heart beat. Denies ankle edema. RESPIRATORY: Denies cough, cold, or chest congestion. Denies shortness of breath, difficulty breathing, or wheezing. GASTROINTESTINAL: Denies abdominal pain or distention. Denies nausea, vomiting , or diarrhea. Denies blood in vomitus, stools, or per rectum. Denies black, tarry stools. Denies constipation. GENITOURINARY: Denies difficulty urinating, painful urination, burning, frequency, blood in urine, or discharge. FEMALE GENITOURINARY: Denies vaginal bleeding, heavy or abnormal periods, irregular periods. Denies vaginal discharge or odor. MUSCULOSKELETAL: Denies back or neck pain or stiffness. Denies joint pain or swelling. SKIN: Denies rash, lesions or sores. HEMATOLOGIC : Denies easy bruising or bleeding. LYMPHATIC: Denies swollen, enlarged glands. NEUROLOGICAL: admits to ocnfusion PSYCHIATRIC: Denies anxiety or stress. Denies depression, suicidal ideation, or homicidal ideation. ALL OTHER SYSTEMS REVIEWED AND NEGATIVE. PHYSICAL EXAMINATION: GENERAL: Well-appearing, well-nourished and in no acute distress. HEAD: Atraumatic, normocephalic. EYES: Pupils equal round and reactive to light, extraocular movements intact, conjunctiva are normal. ENT: Nares patent, oropharynx clear without exudates. Moist mucous membranes. NECK: Normal range of motion, supple without lymphadenopathy LUNGS: Breath sounds clear to auscultation bilaterally and equal. No wheezes rales or rhonchi. HEART: Regular rate and rhythm without murmurs ABDOMEN: Soft, nontender, nondistended abdomen. No guarding, no rebound. No masses appreciated. Female : deferred Musculoskeletal: Normal range of motion, no pitting or edema. No cyanosis. NEUROLOGICAL: Cranial nerves grossly intact. Normal speech, normal gait. Normal sensory, motor exams PSYCH: Normal mood, normal affect. SKIN: Warm, Dry, normal turgor, no rashes or lesions noted. Dictation was performed using [employer] voice recognition software Physical Exam - Vital signs Vitals: Temp Pulse Resp BP Pulse Ox 98.8 F 94 20 174/71 H 96 05/25/17 16:45 05/25/17 16:45 05/25/17 16:45 05/25/17 16:45 05/25/17 16:45 Course - Re-evaluation Re-evalutation: 05/25/17 19:13 Lab work notes no significant abnormality so far, urinalysis is pending CT noted no stroke, but concerns for seizure like activity by family , cofusion 05/25/17 19:34 troponin is noted to be elevated at 0.151, heparin started, dr ospina paged 05/25/17 19:37 Dr Ospina notified , he requests transfer 05/25/17 19:41 [facility] paged 05/25/17 20:28 Dr Reno accepts for transfer requests nicardipine drip 05/25/17 22:39 - Vital Signs Vital signs: Temp Pulse Resp BP Pulse Ox 98.3 F 93 24 H 146/77 H 99 05/25/17 20:00 05/25/17 21:16 05/25/17 22:06 05/25/17 22:07 05/25/17 22:07 - Laboratory Result Diagrams: 05/25/17 20:25 05/25/17 18:33 Laboratory results interpreted by me: 05/25/17 05/25/17 05/25/17 18:10 18:33 18:33 RDW 14.9 H Seg Neutrophils % 79.0 H Lymphocytes % 11.3 L Potassium 3.1 L Est GFR (Non-Af Amer) 58 L Glucose 178 H Calcium 10.6 H Creatine Kinase 222 H Urine Protein 30 H Urine Ketones TRACE H Ur Leukocyte Esterase TRACE H 05/25/17 20:25 RDW 15.1 H Seg Neutrophils % Lymphocytes % Potassium Est GFR (Non-Af Amer) Glucose Calcium Creatine Kinase Urine Protein Urine Ketones Ur Leukocyte Esterase - Diagnostic Test Radiology reviewed: Image reviewed, Reports reviewed Critical Care Note - Critical Care Note Total time excluding time spent on procedures (mins): 39 Comments: 39 minutes of critical care time spent in direct contact evaluating and reevaluating the patient, treating symptoms, reviewing labs and studies and speaking with family and consultants excluding any procedures Discharge - Discharge Clinical Impression: Diabetes mellitus type 2 in obese, NSTEMI (non-ST elevated myocardial infarction) High blood pressure Qualifiers: Hypertension type: essential hypertension Qualified Code(s): I10 - Essential ( primary) hypertension Hyperlipemia Qualifiers: Hyperlipidemia type: unspecified Qualified Code(s): E78.5 - Hyperlipidemia, unspecified Altered mental state Qualifiers: Altered mental status type: transient alteration of awareness Qualified Code(s) : R40.4 - Transient alteration of awareness Condition: Stable Disposition: [facility] Referrals: PRERNA OSPINA MD [Primary Care Provider] - Follow up as needed
[2017-05-25 19:13] LABS: CREATINE KINASE MB 2.02 ng/mL (<4.55)
[2017-05-25] MEDS ORDERED: POTASSIUM CHLORIDE 10 MEQ TABLET.SA PO ONE (19:13)
[2017-05-25 19:15] LABS: TROPONIN I 0.151 ng/mL
[2017-05-25 19:34] LABS: APPEARANCE,URINE CLEAR; BILIRUBIN,URINE NEGATIVE (NEGATIVE); GLUCOSE, URINE NEGATIVE (NEGATIVE); KETONES,URINE TRACE mg/dL (NEGATIVE); LEUKOCYTE ESTERASE,URINE TRACE (NEGATIVE); NITRITE,URINE NEGATIVE (NEGATIVE); PROTEIN,URINE 30 mg/dL (NEGATIVE); URINE SPECIFIC GRAVITY 1.008; UROBILINOGEN,URINE NEGATIVE mg/dL (<2.0)
[2017-05-25] MEDS ORDERED: HEPARIN SODIUM,PORCINE/D5W 25,000 UNIT/250 ML RTUINJ IV PRN (19:35)
[2017-05-25] MEDS ORDERED: HEPARIN SOD (PORCINE) 1,000 UNIT/ML 10 ML VIAL IV ONE (19:35)
[2017-05-25] MEDS ORDERED: HYDRALAZINE HCL INJ/PF 20 MG/1 ML SDV IV ONE (19:40)
[2017-05-25] MEDS ORDERED: LORAZEPAM INJ 2 MG/1 ML VIAL IV ONE (19:45)
[2017-05-25] MEDS ORDERED: NICARDIPINE HCL RTU, ISO-OS 20 MG/200 ML RTUINJ IV PRN (20:27)
[2017-05-25] MEDS ORDERED: ASPIRIN 325 MG TABLET PO ONE (20:28)
[2017-05-25 20:46] LABS: ABSOLUTE LYMPHOCYTES (AUTO) 1.2 10^3/uL (0.5-4.7); ABSOLUTE MONOCYTES (AUTO) 0.5 10^3/uL (0.1-1.4); ABSOLUTE NEUT (AUTO) 5.6 10^3/uL (1.7-8.2); BASOPHILS % (AUTO) 0.5 % (0-2); EOSINOPHILS % (AUTO) 0.1 % (0-6); HEMATOCRIT 41.8 % (36.0-47.0); HEMOGLOBIN 14.2 g/dL (12.0-15.5); HGB HCT DIFFERENCE 0.8; LYMPHOCYTES % (AUTO) 15.7 % (13-45); MEAN CORPUSCULAR HEMOGLOBIN 28.3 pg (27.0-33.4); MEAN CORPUSCULAR HGB CONC 33.9 g/dL (32.0-36.0); MEAN CORPUSCULAR VOLUME 84 fl (80-97); MONOCYTES % (AUTO) 7.4 % (3-13); RED BLOOD COUNT 5.01 10^6/uL (3.72-5.28); RED CELL DISTRIBUTION WIDTH 15.1 % (11.5-14.0); SEGMENTED NEUTROPHILS % (AUTO) 76.3 % (42-78); WHITE BLOOD COUNT 7.3 10^3/uL (4.0-10.5)
[2017-05-25 20:48] LABS: PROTHROMBIN TIME 13.4 SEC (11.4-15.4)
[2017-05-25 20:49] LABS: PARTIAL THROMBOPLASTIN TIME 29.2 SEC (23.5-35.8)
[2017-05-25] MEDS ORDERED: HEPARIN SOD (PORCINE) 1,000 UNIT/ML 10 ML VIAL IV PRN (22:35)
[2017-05-25 23:22] VITALS: BP 140/75
== END 2017-05-25 23:27 | disposition short-term general hospital (02) ==
LOC: ER 16:35
DX: I21.4 Non-ST elevation (NSTEMI) myocardial infarction (principal); E11.9 Type 2 diabetes mellitus without complications; I10 Essential (primary) hypertension; R41.82 Altered mental status, unspecified; Z79.899 Other long term (current) drug therapy
CPT/HCPCS: 93005; 96376; 99291; 96375; 96365; 96366; 96368; 36415; 82553; 82550; 85025; 85610; 85730; 80053; 81001; 84484; 71010; 70450; 93010; J1644 ×2; A9270 ×2; J0360; J2060; J3490

== ENCOUNTER 2018-10-03 16:23 | Emergency (ER) | payer MEDICARE ==
[~2018-10-03 16:23] MED LIST: CALCIUM GLUCONATE 1000 MG/10 ML INJ IV ONE; DEXAMETHASONE SOD PHOSPHATE INJ 4 MG/1 ML VIAL ONE; DIPHENHYDRAMINE HCL 50 MG/ML VIAL ONE; EPINEPHRINE INJ 1 MG/10 ML DISP.SYRIN ONE; EPINEPHRINE INJ/PF 1 MG/1 ML AMPULE ONE; METHYLPREDNISOLONE INJ 125 MG/2 ML SDV ONE; ONDANSETRON HCL INJ/PF 4 MG/2 ML SDV ONE; PHENYLEPHRINE HCL INJ/PF 10 MG/1 ML SDV ONE; ROCURONIUM BROMIDE INJ 50 MG/5 ML VIAL IV ONE; SUCCINYLCHOLINE CHLORIDE INJ 200 MG/10 ML VIAL ONE
[2018-10-03] MEDS ORDERED: LIDOCAINE 1%/EPINEPHRINE INJ 20 ML VIAL ONE (16:28)
[2018-10-03] MEDS ORDERED: ONDANSETRON HCL INJ/PF 4 MG/2 ML SDV ONE (16:33)
[2018-10-03] MEDS ORDERED: TRANEXAMIC ACID INJ/PF 1,000 MG/10 ML SDV IV ONE (16:33)
[2018-10-03] MEDS ORDERED: KETAMINE HCL INJ 500 MG/10 ML VIAL ONE (16:36)
[2018-10-03] MEDS ORDERED: ETOMIDATE INJ/PF 20 MG/10 ML SDV IV ONE (16:38)
[2018-10-03] MEDS ORDERED: BUPIVACAINE HCL 0.25% /EPINEPHRINE INJ/PF 30 ML SDV ONE (17:00)
[2018-10-03] MEDS ORDERED: FENTANYL CITRATE INJ/PF 100 MCG/2 ML AMPUL ONE (17:04)
--- NOTE | 2018-10-03 17:09 | ER Document Report ---
ED General - General Chief Complaint: Allergic Reaction Stated Complaint: POSSIBLE ALLERGIC REACTION Time Seen by Provider: 10/03/18 17:04 Mode of Arrival: Wheelchair Information source: Patient, Relative, [facility] Records Notes: 73-year-old female with hypertension, type 2 diabetes, previous history of angioedema presents with lip, tongue swelling and in respiratory distress. Patient unable to give history due to being in extremis, airway compromise, drooling. reports that the patient has had prior similar symptoms resulting in intubation. At that time patient was on lisinopril but this has been discontinued for several months. reports that just prior to arrival she was eating a roast beef sandwich prior to symptom onset. denies any new medication, exposures and known food allergies. TRAVEL OUTSIDE OF THE [place] IN LAST 30 DAYS: No - HPI Onset: Just prior to arrival Onset/Duration: Sudden Associated symptoms: Drooling, Shortness of breath, Other - Difficulty swallowing Exacerbated by: Denies Relieved by: Denies Similar symptoms previously: Yes Recently seen / treated by doctor: Yes - Related Data Allergies/Adverse Reactions: lisinopril Allergy (Verified 05/21/17 11:53) angioedema, tongue swollen Past Medical History - General Information source: Relative, [facility] Records Cannot obtain history due to: Unstable vital signs - Social History Smoking Status: Unknown if Ever Smoked Frequency of alcohol use: None Drug Abuse: None Lives with: Spouse/Significant other Family History: Reviewed & Not Pertinent - Past Medical History Cardiac Medical History: Reports: Hx Hypertension Denies: Hx Coronary Artery Disease, Hx Heart Attack Pulmonary Medical History: Denies: Hx Asthma, Hx Bronchitis, Hx COPD, Hx Pneumonia Neurological Medical History: Denies: Hx Cerebrovascular Accident, Hx Seizures Endocrine Medical History: Reports: Hx Diabetes Mellitus Type 2 Renal/ Medical History: Denies: Hx Peritoneal Dialysis Musculoskeletal Medical History: Denies Hx Arthritis Psychiatric Medical History: Denies: Hx Depression Past Surgical History: Reports: Hx Appendectomy, Hx Hysterectomy, Hx Neurologic Surgery - 2000 coiling, Hx Tubal Ligation. Denies: Hx Pacemaker - Immunizations Hx Diphtheria, Pertussis, Tetanus Vaccination: Yes Review of Systems - Review of Systems -: Yes ROS unobtainable due to patient's medical condition Physical Exam - Vital signs Vitals: Temp BP Pulse Ox 97.4 F 179/104 H 98 10/03/18 16:29 10/03/18 16:29 10/03/18 16:29 - Notes Notes: PHYSICAL EXAMINATION: GENERAL: Patient in extremis, drooling, holding her neck, tripoding HEAD: Significant lip, tongue swelling. EYES: Pupils equal round and reactive to light, extraocular movements intact, conjunctiva are normal. ENT: Nares patent, oropharynx clear without exudates. Moist mucous membranes. NECK: Normal range of motion, supple without lymphadenopathy LUNGS: Respiratory distress, stridor, increased work of breathing, diminished breath sounds HEART: Regular rate and rhythm without murmurs ABDOMEN: Soft, nontender, nondistended abdomen. No guarding, no rebound. No masses appreciated. Female : deferred Musculoskeletal: Normal range of motion, no pitting or edema. No cyanosis. NEUROLOGICAL: Cranial nerves grossly intact. Normal speech, normal gait. Normal sensory, motor exams PSYCH: Anxious SKIN: Warm, Dry, normal turgor, no rashes or lesions noted. Course - Re-evaluation Re-evalutation: 10/03/18 18:30 73-year-old female presents in respiratory distress, in extremis with significant lip, tongue swelling and associated stridor, tripoding and drooling. Patient did receive IM epinephrine but continued to struggle to breathe and had worsening swelling. Nasal cannula and nonrebreather were placed while intubation was set up. Etomidate was used for sedation no paralytic was given for initial intubation. Uvalda scope was used and there was significant swelling of the arytenoid cartilage, vocal cords. Patient's vocal cords were swollen shut. 2 attempts were made by myself and one attempt was made by Dr. Rodriguez unsuccessfully. Anesthesia and surgery were called for intubation, cricothyrotomy. Surgery and anesthesia at the bedside. Anesthesiologist entered the room and stated that he did not want to look at the airway if we are describing it the way we were. He stated that the patient needed a tracheostomy. SPRAY PAINTER's were at the bedside stating that they want to bring the patient to the OR but the patient was unstable and without a definitive airway and had brief desaturations with O2 sats in the 80s. After several minutes of bag valve mask patient did maintain an O2 over 95%. Patient's neck was prepped for cricothyrotomy. Additional etomidate and ketamine were administered. This was performed successfully by Dr. Bennett and the patient was discharged to the operating room for definitive airway placement with a 6.0 ET tube in the trachea and O2 saturations of 98%. Rocuronium was initiated once the decision for cricothyrotomy was made. IV fluids were administered. SPRAY PAINTER ordered TXA and FFP for the patient. - Vital Signs Vital signs: Temp Pulse Resp BP Pulse Ox 97.4 F 27 H 98/70 L 99 10/03/18 16:29 10/03/18 16:58 10/03/18 16:59 10/03/18 16:58 - Laboratory Laboratory results interpreted by me: 10/03/18 17:30 Crossmatch See Detail Critical Care Note - Critical Care Note Total time excluding time spent on procedures (mins): 35 - Minutes of critical care time spent in direct contact evaluating and reevaluating the patient, treating symptoms, reviewing labs and studies and speaking with family and consultants excluding any procedures Discharge - Discharge Clinical Impression: Airway compromise Angioedema Qualifiers: Encounter type: initial encounter Qualified Code(s): T78.3XXA - Angioneurotic edema, initial encounter Condition: Critical Disposition: ADMITTED INPATIENT Admitting Provider: [facility] Admitted: OR
[2018-10-03] MEDS ORDERED: MIDAZOLAM 2 MG/2 ML INJ ONE (17:26)
[2018-10-03] MEDS ORDERED: EPHEDRINE SULFATE INJ 50 MG/1 ML AMPULE ONE (17:27)
[2018-10-03] MEDS ORDERED: CEFAZOLIN INJ 1 GM VIAL ONE (17:38)
[2018-10-03 17:55] VITALS: BP 98/70
--- NOTE | 2018-10-03 18:06 | ER Document Report ---
ED General - General Chief Complaint: Allergic Reaction Stated Complaint: POSSIBLE ALLERGIC REACTION Time Seen by Provider: 10/03/18 17:04 Primary Care Provider: PRERNA LOERA MD [Primary Care Provider] - Follow up as needed Mode of Arrival: Wheelchair TRAVEL OUTSIDE OF THE [place] IN LAST 30 DAYS: No - Related Data Allergies/Adverse Reactions: lisinopril Allergy (Verified 05/21/17 11:53) angioedema, tongue swollen Past Medical History - General Information source: Patient, Relative, [facility] Records - Social History Family History: Reviewed & Not Pertinent - Past Medical History Cardiac Medical History: Reports: Hx Hypertension Denies: Hx Coronary Artery Disease, Hx Heart Attack Pulmonary Medical History: Denies: Hx Asthma, Hx Bronchitis, Hx COPD, Hx Pneumonia Neurological Medical History: Denies: Hx Cerebrovascular Accident, Hx Seizures Endocrine Medical History: Reports: Hx Diabetes Mellitus Type 2 Renal/ Medical History: Denies: Hx Peritoneal Dialysis Musculoskeletal Medical History: Denies Hx Arthritis Psychiatric Medical History: Denies: Hx Depression Past Surgical History: Reports: Hx Appendectomy, Hx Hysterectomy, Hx Neurologic Surgery - 2000 coiling, Hx Tubal Ligation. Denies: Hx Pacemaker - Immunizations Hx Diphtheria, Pertussis, Tetanus Vaccination: Yes Physical Exam - Vital signs Vitals: Temp BP Pulse Ox 97.4 F 179/104 H 98 10/03/18 16:29 10/03/18 16:29 10/03/18 16:29 Course - Vital Signs Vital signs: Temp Pulse Resp BP Pulse Ox 97.4 F 27 H 98/70 L 99 10/03/18 16:29 10/03/18 16:58 10/03/18 16:59 10/03/18 16:58 - Laboratory Laboratory results interpreted by me: 10/03/18 17:30 Crossmatch See Detail Discharge - Discharge Clinical Impression: Airway compromise Angioedema Qualifiers: Encounter type: initial encounter Qualified Code(s): T78.3XXA - Angioneurotic edema, initial encounter Condition: Critical Referrals: PRERNA LOERA MD [Primary Care Provider] - Follow up as needed
[2018-10-03] MEDS ORDERED: IPRATROPIUM/ALBUTEROL 0.5-2.5 MG/3 ML AMPUL NEB PRN (18:26)
[2018-10-03] MEDS ORDERED: NORMAL SALINE 1000 ML 1,000 ML IV PRN (18:26)
[2018-10-03] MEDS ORDERED: ACETAMINOPHEN 650 MG SUPP.RECT PR PRN (18:26)
[2018-10-03] MEDS ORDERED: GLUCAGON,HUMAN RECOMB 1 MG INJ IM PRN (18:31)
[2018-10-03] MEDS ORDERED: DEXTROSE 40% GEL 15 GM TUBE PO PRN ×2 (18:31)
[2018-10-03] MEDS ORDERED: DEXTROSE 50%-WATER 25 GM/50 ML DISP.SYRIN IV PRN ×2 (18:31)
--- NOTE | 2018-10-03 21:35 | Operative Report ---
Nonrecallable Operative Report DATE OF SURGERY: 10/03/18 PREOPERATIVE DIAGNOSIS: angioedema, respiratory distress POSTOPERATIVE DIAGNOSIS: angioedema, respiratory distress OPERATION: emergency cryicothyroidotomy SURGEON: ANDREINA DICKENS ANESTHESIA: Other TISSUE REMOVED OR ALTERED: none COMPLICATIONS: pt due to respiratory failure ESTIMATED BLOOD LOSS: 300cc INTRAOPERATIVE FINDINGS: see full dictated note PROCEDURE: see full dictated note.
[2018-10-03] MEDS ORDERED: CEFEPIME 1 GM/D5W RTU 1 GM/50 ML RTUPB IV SCH (22:00)
[2018-10-03] MEDS ORDERED: FAMOTIDINE INJ/PF 20 MG/2 ML SDV IV SCH (22:00)
[2018-10-03] MEDS ORDERED: METHYLPREDNISOLONE INJ 125 MG/2 ML SDV IV SCH (22:00)
--- NOTE | 2018-10-03 23:34 | OPERATIVE REPORT E ---
Operative Report NAME: YEMI CARLSON : 1945 AGE: 73Y DATE OF SURGERY: 10/03/2018 ROOM: ED23 PREOPERATIVE DIAGNOSIS: ANGIOEDEMA, RESPIRATORY DISTRESS. POSTOPERATIVE DIAGNOSIS: ANGIOEDEMA, RESPIRATORY DISTRESS. OPERATIVE PROCEDURE: Emergent tracheostomy. SURGEON: ANDREINA DICKENS M.D. INDICATIONS FOR PROCEDURE: This is a 73-year-old female who presented to the emergency room this evening after eating at a local fast food restaurant. She presented with shortness of breath, inability to swallow, and facial edema and tongue edema. She had a previous history of angioedema, which this reportedly is her third or fourth episode and presentation to the emergency room. She came to the emergency room. In the emergency room the physician attempted intubation and could not. DETAILS OF PROCEDURE: I was called emergently to the ER, to the [facility] to place a tracheostomy because she could not be intubated after multiple attempts by the emergency room physician. The patient was in severe distress, being bagged with a low SaO2. There was a tracheostomy tray available, without anesthesia, with quick prep of the neck a transverse incision was made over the cricoid cartilage and dissection was carried down with sharp dissection through the platysma muscle until we reached the strap muscle. The patient had a very large goiter and the trachea really could not be palpated well underneath this large thyroid. I needed to divide the thyroid at bedside quickly with an 11 blade with which it was done and when I then was able to palpate the trachea. I then made a transverse incision with an 11 blade in the trachea and placed 6 Malagasy endotracheal tube into the tracheotomy to gain access to the trachea. We were then able to connect to an Ambu bag and start respirations. Her oxygen saturation then came back up. However, there was significant bleeding secondary to the required procedure and the division of her thyroid gland. Clamps were placed to control bleeding and we continued resuscitation. We brought the patient to the operating for continued resuscitation. We placed her on the operating room table and she was paralyzed at that point by the Anesthesiologist. We quickly prepped and draped the neck and then I was able to place a Weitlaner retractor into the incision that I had previously made to gain access to the anterior jugular vein which was bleeding and this was controlled with oversewing with 3-0 Polysorb. I also oversewed the edges of the divided thyroid with interrupted 3-0 Vicryl suture. Once we were able to do that I identified the tracheotomy hole and was able to use a tracheal hook to lift the trachea up into the wound. I then placed two 2-0 Nylon sutures on each side of the trachea in the second tracheal ring to allow for retraction. During the procedure the Anesthesiologist kept stating that it was intermittently difficult to intubate her secondary to the very small endotracheal tube and the fact that it was long and continued to kink. We pre-oxygenated her well and then after getting a 7 Malagasy Shiley tracheostomy tube ready we deflated the endotracheal cuff and removed it. I noted a fairly large tracheotomy which was dilated somewhat more with a tracheal assistant printer floor covering. Under controlled conditions at this point with no significant bleeding I was able to place a Shiley 7.5 mm tracheostomy tube in through the tracheotomy. Once we connected it to the ventilator bag the Anesthesiologist continued to have complaints about inability to ventilate her and poor CO2 noted on her monitor. I then felt that it could possibly malpositioning, therefore, we removed tube and replaced a 6 Malagasy endotracheal tube. Again after replacing the tube Anesthesia still complained of difficulty bagging the patient. I suctioned the tube, the 6 Malagasy endotracheal tube, with a long suction catheter and removed a large amount of clot. We were then able to bag her better but this quickly deteriorated and it became again difficult to bag her. I then removed the endotracheal tube with clear vision of the tracheotomy hole and suctioned directly into the trachea also again removing more clot. We then copiously irrigated the tracheal airway and removed a third fairly large clot, placed again a 6 Malagasy endotracheal tube back into the airway and blew up the balloon and we were able to get better oxygenation. However, that subsequently deteriorated again. It was felt by Anesthesia at this point that the patient was deteriorating and the oxygen saturation was dropping. I listened to both lung call and noted that there was a poor flow on both sides, but the left worse than the right and I noted that her abdominal girth was expanding secondary due to extensive masking of the patient. I placed an NG tube to see if we could evacuate the stomach but that was only minimally effective. In addition to that there was poor breath sounds on the left side and in an emergent situation I prepped the left chest and placed a 28 Malagasy chest tube into the left chest. Once I did that and felt lungs they felt hard and firm and were not expanding well with ventilation from the Anesthesiologist. However, that chest tube was fixed there with an 0 Nylon suture. We continued to try to aerate the patient with multiple attempts at changing either the endotracheal tube, placing a bigger tube, suctioning the airway out, and really could never successfully regain good respirations. I then asked for the portable bronchoscope and placed that in through the airway and noted a large amount of fluid and clot within her trachea. Despite multiple attempts at clearing the trachea of its clot we were really never able to ventilate the patient. The patient slowly became more bradycardic as her oxygen saturation slowly deteriorated and eventually she became agonal as far as her EKG rhythm was and CPR was then instituted. Anesthesiology continued to give the patient rounds of epinephrine and ephedrine to maintain her blood pressure but after long resuscitation period with continuing to attempt to get a better airway the patient succumbed to the hypoxemia. The Code was called and patient was pronounced in the operating room. The time of was recorded by the Post Office Manager who was present at the termination of the procedure and the nursing cloth shrinking supervisor. Estimated blood for my portion of the procedure was approximately 300 mL. [place] [facility] [place] DICTATING PHYSICIAN: ANDREINA DICKENS M.D. [id number] SHAHIDY#: [id number] ID: [id number] JOB#: [id number] ACCT: [id number] cc:ANDREINA DICKENS M.D. >
[2018-10-04] MEDS ORDERED: INSULIN LISPRO 100 UNIT/ML 3 ML VIAL SUBCUT SCH
[2018-10-04] MEDS ORDERED: ENOXAPARIN SODIUM INJ 40 MG/0.4 ML DISP.SYRIN SUBCUT SCH (10:00)
--- NOTE | 2018-11-20 15:31 | OPERATIVE REPORT E ---
Operative Report NAME: YEMI CARLSON : 1945 AGE: 73Y DATE OF SURGERY: 10/04/2018 ROOM: ED23 ADDENDUM: The patient was then [place] [facility] [place] The patient subsequent to the procedure, which was not an unanticipated outcome secondary to the severe distress and emergent intervention necessary for the care of this patient. DICTATING PHYSICIAN: ANDREINA DICKENS M.D. [id number] PHY#: [id number] ID: [id number] JOB#: [id number] ACCT: [id number] cc:ANDREINA DICKENS M.D. >
== END 2018-10-03 18:37 | disposition left against medical advice (07) ==
LOC: OROUT 16:23 → EH 18:50 → UNDOADMIN 18:50 → UNDODISIN 22:28
DX: T78.3XXA Angioneurotic edema, initial encounter (principal); J96.91 Respiratory failure, unspecified with hypoxia; I10 Essential (primary) hypertension; E11.9 Type 2 diabetes mellitus without complications; Z88.8 Allergy status to other drugs, medicaments and biological substances
CPT/HCPCS: 31605; 99291; 96372; 96374; 96375; 86900; 86901; 36415; 36430; 86850; C1751; P9017; J2250; J0610; J0690; J3490 ×3; J1100; J0171; J3010; J2370; J0330; J2405; 320